=== PATIENT | male | born 1930 | race Caucasian/White ===

== ENCOUNTER 2017-04-10 18:54 | Inpatient (IN) | payer MEDICARE, OTHER ==
[2017-04-10 19:08] LABS: Glucose,Whole Blood 218 mg/dL (75-99)
[2017-04-10] MEDS ORDERED: ACETAMINOPHEN TAB 500 MG TAB PO STA (19:25)
[2017-04-10] MEDS ORDERED: IBUPROFEN 600 MG TAB PO STA (19:25)
--- NOTE | 2017-04-10 19:30 | ED ---
General Adult HPI - General Source: family, RN notes reviewed Mode of arrival: wheelchair Limitations: no limitations <Mosiés Crisostomo - Last Filed: 04/10/17 20:53> <Moisés Casanova - Last Filed: 04/10/17 23:33> - General Chief complaint: Neuro Symptoms/Deficit Stated complaint: poss CVA/Weakness Time Seen by Provider: 04/10/17 19:00 - History of Present Illness Initial comments: This is an 86 rolled male who is brought into the emergency department with the family noticed left-sided weakness. According to the family patient was complaining of being very cold yesterday and all night long. Family stated last night he was having difficult time getting to bed and the had to help him get to bed and with the use of a chair so she did not notice any left-sided weakness at that time she really wasn't looking for. Again today the patient Go to bathroom and fell to the ground and needed assistance getting up. Family noticed for sure at about 3:00 this afternoon that the patient was having some left arm weakness and some left facial droop. At this time has decided to bring the patient to the emergency department. Patient's temperature home according to family was normal. Patient has had a little bit of a cough recently. Patient denies any abdominal pain patient denies nausea vomiting diarrhea. Patient denies any headache. Patient denies any recent injury or trauma. Patient has a past history of atrial fibrillation. (Moisés Crisostomo) - Related Data Home Medications Medication Instructions Recorded Confirmed Apixaban [Eliquis] 2.5 mg PO HS 04/10/17 04/10/17 Aspirin EC [Ecotrin Low Dose] 81 mg PO DAILY 04/10/17 04/10/17 Atorvastatin [Lipitor] 20 mg PO HS 04/10/17 04/10/17 Furosemide [Lasix] 40 mg PO DAILY 04/10/17 04/10/17 Glimepiride [Amaryl] 2 mg PO DAILY 04/10/17 04/10/17 Losartan [Cozaar] 50 mg PO DAILY 04/10/17 04/10/17 Potassium Gluconate 99 mg PO HS 04/10/17 04/10/17 Allergies Allergy/AdvReac Type Severity Reaction Status Date / Time No Known Allergies Allergy Verified 04/10/17 20:27 Review of Systems ROS Other: All systems not noted in ROS Statement are negative. <Moisés Crisostomo - Last Filed: 04/10/17 20:53> ROS Other: All systems not noted in ROS Statement are negative. <Moisés Casanova - Last Filed: 04/10/17 23:33> ROS Statement: Those systems with pertinent positive or pertinent negative responses have been documented in the HPI. Past Medical History Past Medical History: Heart Failure, CVA/TIA, Dialysis, Hypertension, Myocardial Infarction ([place]) History of Any Multi-Drug Resistant Organisms: None Reported Past Surgical History: Hernia Repair Past Psychological History: No Psychological Hx Reported Smoking Status: Never smoker Past Alcohol Use History: Rare Past Drug Use History: None Reported <Moisés Crisostomo - Last Filed: 04/10/17 20:53> General Exam Limitations: no limitations <Moisés Crisostomo - Last Filed: 04/10/17 20:53> General appearance: alert (arousable), lethargic, in distress Head exam: Present: atraumatic, normocephalic, normal inspection Eye exam: Present: normal appearance, PERRL, EOMI. Absent: scleral icterus, conjunctival injection, periorbital swelling ENT exam: Present: normal exam, mucous membranes dry. Absent: mucous membranes moist Neck exam: Present: normal inspection. Absent: tenderness, meningismus, lymphadenopathy Respiratory exam: Present: normal lung sounds bilaterally, rales, accessory muscle use, decreased breath sounds. Absent: respiratory distress, wheezes, rhonchi, stridor Cardiovascular Exam: Present: tachycardia, normal heart sounds. Absent: systolic murmur, diastolic murmur, rubs, gallop, clicks GI/Abdominal exam: Present: soft, tenderness (RUQ), normal bowel sounds. Absent : distended, guarding, rebound, rigid Extremities exam: Present: normal inspection, full ROM, normal capillary refill. Absent: tenderness, pedal edema, joint swelling, calf tenderness Back exam: Present: normal inspection Neurological exam: Present: alert, oriented X3, CN II-XII intact Psychiatric exam: Present: normal affect, normal mood Skin exam: Present: warm, dry, intact, normal color. Absent: rash <Moisés Casanova - Last Filed: 04/10/17 23:33> - General Exam Comments Initial Comments: GENERAL: Patient is well-developed and well-nourished. Patient is nontoxic and well- hydrated and is in mild distress. ENT: Neck is soft and supple. No significant lymphadenopathy is noted. Oropharynx is clear. Moist mucous membranes. Neck has full range of motion without eliciting any pain. EYES: The sclera were anicteric and conjunctiva were pink and moist. Extraocular movements were intact and pupils were equal round and reactive to light. Eyelids were unremarkable. PULMONARY: Unlabored respirations. Good breath sounds bilaterally. No audible rales rhonchi or wheezing was noted. CARDIOVASCULAR: There is a regular rate and rhythm without any murmurs gallops or rubs. ABDOMEN: Soft and nontender with normal bowel sounds. No palpable organomegaly was noted. There is no palpable pulsatile mass. SKIN: Skin is clear with no lesions or rashes and otherwise unremarkable. NEUROLOGIC: Patient is alert and oriented x3. 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 LYMPHATICS: No significant lymphadenopathy is noted PSYCHIATRIC: Normal psychiatric evaluation. (Moisés Crisostomo) Course <Moisés Crisostomo - Last Filed: 04/10/17 20:53> <Moisés Casanova - Last Filed: 04/10/17 23:33> Vital Signs 04/10/17 04/10/17 04/10/17 18:59 19:23 19:32 Temperature 99.0 F 100.8 F H Pulse Rate 107 H Pulse Rate [ 105 H Regional Engineer ] Respiratory 18 Rate Blood Pressure 133/84 O2 Sat by Pulse 93 L Oximetry 04/10/17 04/10/17 04/10/17 20:08 20:53 21:32 Temperature 97.6 F Pulse Rate 91 88 Pulse Rate [ Regional Engineer ] Respiratory 18 18 Rate Blood Pressure 112/64 81/49 75/52 O2 Sat by Pulse 97 97 97 Oximetry 04/10/17 04/10/17 04/10/17 21:50 21:58 22:06 Temperature Pulse Rate 87 87 85 Pulse Rate [ Regional Engineer ] Respiratory 20 Rate Blood Pressure 72/46 73/52 83/52 O2 Sat by Pulse 98 97 95 Oximetry 04/10/17 04/10/17 22:59 23:03 Temperature Pulse Rate 74 77 Pulse Rate [ Regional Engineer ] Respiratory 20 Rate Blood Pressure 78/53 90/59 O2 Sat by Pulse 99 100 Oximetry - Reevaluation(s) Reevaluation #1: 04/10/17 23:30 patient continues to have decrease in blood pressure will insert central line patient to be started on levophed (Moisés Casanova) Reevaluation #2: 04/10/17 23:31 spoke with family regarding patient condition, they understand prognosis, questions answered (Moisés Casanova) Reevaluation #3: 04/10/17 23:[address] Cuenca, ICU Dr Edge, GenSx Dr Stroud, Cardiology Dr Taylor ( Moisés Casanova) Medical Decision Making - Lab Data Result diagrams: 04/10/17 19:25 04/10/17 19:25 <Moisés Crisostomo - Last Filed: 04/10/17 20:53> - Lab Data Result diagrams: 04/10/17 19:25 04/10/17 19:25 - Radiology Data Radiology results: report reviewed (CT brain is negative for acute disease, chest x-ray shows bilateral pulmonary edema possibly underlying pneumonia, ultrasound gallbladder is positive for dilated common bile duct dilated gallbladder wall, cholecystitis), image reviewed <Moisés Casanova - Last Filed: 04/10/17 23:33> - Medical Decision Making EKG shows sinus tachycardia at 102 bpm ND interval is 218 QRS is 142 QT interval 342 QTC is 445. Patient's EKG shows an occasional PAC patient's EKG shows no obvious ST segment elevation. Patient does have Q waves in inferior leads. Dr. Casanova will be taking over the care of this patient at 9 PM (Moisés Crisostomo) 86 male to the ER for evaluation regarding initially right-sided weakness, patient also having fever abdominal pain, patient is septic with septic shock likely multiorgan dysfunction syndrome, acute kidney insufficiency, elevated troponin, CHF secondary to ascending cholangitis, gallbladder pancreatitis, patient has central line getting resuscitation will admit for definitive monitoring, IV antibiotics including Levaquin and Zosyn, spoke with both GI, ICU and cardiology regarding patient (Moisés Casanova) - Lab Data Lab Results 04/10/17 04/10/17 04/10/17 Range/Units 19:07 19:25 19:25 WBC 15.5 H (3.8-10.6) k/uL RBC 3.68 L (4.30-5.90) m/uL Hgb 11.8 L (13.0-17.5) gm/dL Hct 36.8 L (39.0-53.0) % MCV 100.1 H (80.0-100.0) fL MCH 32.1 (25.0-35.0) pg MCHC 32.0 (31.0-37.0) g/dL RDW 15.2 (11.5-15.5) % Plt Count 93 L (150-450) k/uL Neutrophils % 93 % Lymphocytes % 2 % Monocytes % 4 % Eosinophils % 0 % Basophils % 0 % Neutrophils # 14.4 H (1.3-7.7) k/uL Lymphocytes # 0.4 L (1.0-4.8) k/uL Monocytes # 0.6 (0-1.0) k/uL Eosinophils # 0.0 (0-0.7) k/uL Basophils # 0.0 (0-0.2) k/uL Manual Slide Review Performed Polychromasia Present Macrocytosis Slight PT (9.0-12.0) sec INR (<1.2) APTT (22.0-30.0) sec VBG pH (7.31-7.41) VBG pCO2 (37-51) mmHg VBG HCO3 (24-28) mmol/L Sodium (137-145) mmol/L Potassium (3.5-5.1) mmol/L Chloride (98-107) mmol/L Carbon Dioxide (22-30) mmol/L Anion Gap mmol/L BUN (9-20) mg/dL Creatinine (0.66-1.25) mg/dL Est GFR (MDRD) Af Amer (>60 ml/min/1.73 sqM) Est GFR (MDRD) Non-Af (>60 ml/min/1.73 sqM) Glucose (74-99) mg/dL POC Glucose (mg/dL) 218 H (75-99) mg/dL POC Glu Forming Machine Tender ID Jorge Alberto Gonsalesovan Lactic Ac Sepsis Rflx Plasma Lactic Acid Chay (0.7-2.0) mmol/L Calcium (8.4-10.2) mg/dL Phosphorus (2.5-4.5) mg/dL Magnesium (1.6-2.3) mg/dL Total Bilirubin (0.2-1.3) mg/dL AST (17-59) U/L ALT (21-72) U/L Alkaline Phosphatase (38-126) U/L Ammonia (<30) umol/L Total Creatine Kinase 948 H (55-170) U/L CK-MB (CK-2) 2.8 H* (0.0-2.4) ng/mL CK-MB (CK-2) Rel Index 0.3 Troponin I 3.470 H* (0.000-0.034) ng/mL Total Protein (6.3-8.2) g/dL Albumin (3.5-5.0) g/dL Lipase (23-300) U/L Urine Color Urine Appearance (Clear) Urine pH (5.0-8.0) Ur Specific [place] (1.001-1.035) Urine Protein (Negative) Urine Glucose (UA) (Negative) Urine Ketones (Negative) Urine Blood (Negative) Urine Nitrite (Negative) Urine Bilirubin (Negative) Urine Urobilinogen (<2.0) mg/dL Ur Leukocyte Esterase (Negative) Urine RBC (0-5) /hpf Urine WBC (0-5) /hpf Ur Squamous Epith Cells (0-4) /hpf Urine Bacteria (None) /hpf Hyaline Casts (0-2) /lpf Urine Mucus (None) /hpf Urine Yeast (Budding) (None) /hpf Salicylates mg/dL 04/10/17 04/10/17 04/10/17 Range/Units 19:25 19:25 19:25 WBC (3.8-10.6) k/uL RBC (4.30-5.90) m/uL Hgb (13.0-17.5) gm/dL Hct (39.0-53.0) % MCV (80.0-100.0) fL MCH (25.0-35.0) pg MCHC (31.0-37.0) g/dL RDW (11.5-15.5) % Plt Count (150-450) k/uL Neutrophils % % Lymphocytes % % Monocytes % % Eosinophils % % Basophils % % Neutrophils # (1.3-7.7) k/uL Lymphocytes # (1.0-4.8) k/uL Monocytes # (0-1.0) k/uL Eosinophils # (0-0.7) k/uL Basophils # (0-0.2) k/uL Manual Slide Review Polychromasia Macrocytosis PT 22.3 H (9.0-12.0) sec INR 2.3 H (<1.2) APTT 29.3 (22.0-30.0) sec VBG pH (7.31-7.41) VBG pCO2 (37-51) mmHg VBG HCO3 (24-28) mmol/L Sodium 140 (137-145) mmol/L Potassium 3.8 (3.5-5.1) mmol/L Chloride 106 (98-107) mmol/L Carbon Dioxide 18 L (22-30) mmol/L Anion Gap 16 mmol/L BUN 47 H (9-20) mg/dL Creatinine 1.80 H (0.66-1.25) mg/dL Est GFR (MDRD) Af Amer 44 (>60 ml/min/1.73 sqM) Est GFR (MDRD) Non-Af 36 (>60 ml/min/1.73 sqM) Glucose 216 H (74-99) mg/dL POC Glucose (mg/dL) (75-99) mg/dL POC Glu Forming Machine Tender ID Lactic Ac Sepsis Rflx Plasma Lactic Acid Chay 4.8 H* (0.7-2.0) mmol/L Calcium 9.0 (8.4-10.2) mg/dL Phosphorus (2.5-4.5) mg/dL Magnesium (1.6-2.3) mg/dL Total Bilirubin 5.9 H (0.2-1.3) mg/dL AST 155 H (17-59) U/L ALT 186 H (21-72) U/L Alkaline Phosphatase 199 H (38-126) U/L Ammonia (<30) umol/L Total Creatine Kinase (55-170) U/L CK-MB (CK-2) (0.0-2.4) ng/mL CK-MB (CK-2) Rel Index Troponin I (0.000-0.034) ng/mL Total Protein 5.7 L (6.3-8.2) g/dL Albumin 3.0 L (3.5-5.0) g/dL Lipase (23-300) U/L Urine Color Urine Appearance (Clear) Urine pH (5.0-8.0) Ur Specific [place] (1.001-1.035) Urine Protein (Negative) Urine Glucose (UA) (Negative) Urine Ketones (Negative) Urine Blood (Negative) Urine Nitrite (Negative) Urine Bilirubin (Negative) Urine Urobilinogen (<2.0) mg/dL Ur Leukocyte Esterase (Negative) Urine RBC (0-5) /hpf Urine WBC (0-5) /hpf Ur Squamous Epith Cells (0-4) /hpf Urine Bacteria (None) /hpf Hyaline Casts (0-2) /lpf Urine Mucus (None) /hpf Urine Yeast (Budding) (None) /hpf Salicylates mg/dL 04/10/17 04/10/17 04/10/17 Range/Units 19:52 21:12 21:58 WBC (3.8-10.6) k/uL RBC (4.30-5.90) m/uL Hgb (13.0-17.5) gm/dL Hct (39.0-53.0) % MCV (80.0-100.0) fL MCH (25.0-35.0) pg MCHC (31.0-37.0) g/dL RDW (11.5-15.5) % Plt Count (150-450) k/uL Neutrophils % % Lymphocytes % % Monocytes % % Eosinophils % % Basophils % % Neutrophils # (1.3-7.7) k/uL Lymphocytes # (1.0-4.8) k/uL Monocytes # (0-1.0) k/uL Eosinophils # (0-0.7) k/uL Basophils # (0-0.2) k/uL Manual Slide Review Polychromasia Macrocytosis PT (9.0-12.0) sec INR (<1.2) APTT (22.0-30.0) sec VBG pH (7.31-7.41) VBG pCO2 (37-51) mmHg VBG HCO3 (24-28) mmol/L Sodium (137-145) mmol/L Potassium (3.5-5.1) mmol/L Chloride (98-107) mmol/L Carbon Dioxide (22-30) mmol/L Anion Gap mmol/L BUN (9-20) mg/dL Creatinine (0.66-1.25) mg/dL Est GFR (MDRD) Af Amer (>60 ml/min/1.73 sqM) Est GFR (MDRD) Non-Af (>60 ml/min/1.73 sqM) Glucose (74-99) mg/dL POC Glucose (mg/dL) (75-99) mg/dL POC Glu Forming Machine Tender ID Lactic Ac Sepsis Rflx Y Plasma Lactic Acid Chay 2.7 H* (0.7-2.0) mmol/L Calcium (8.4-10.2) mg/dL Phosphorus (2.5-4.5) mg/dL Magnesium (1.6-2.3) mg/dL Total Bilirubin (0.2-1.3) mg/dL AST (17-59) U/L ALT (21-72) U/L Alkaline Phosphatase (38-126) U/L Ammonia 20 (<30) umol/L Total Creatine Kinase (55-170) U/L CK-MB (CK-2) (0.0-2.4) ng/mL CK-MB (CK-2) Rel Index Troponin I (0.000-0.034) ng/mL Total Protein (6.3-8.2) g/dL Albumin (3.5-5.0) g/dL Lipase (23-300) U/L Urine Color Dark Yellow Urine Appearance Cloudy (Clear) Urine pH 5.5 (5.0-8.0) Ur Specific [place] 1.013 (1.001-1.035) Urine Protein 1+ H (Negative) Urine Glucose (UA) Negative (Negative) Urine Ketones Negative (Negative) Urine Blood Moderate H (Negative) Urine Nitrite Negative (Negative) Urine Bilirubin 1+ H (Negative) Urine Urobilinogen <2.0 (<2.0) mg/dL Ur Leukocyte Esterase Negative (Negative) Urine RBC <1 (0-5) /hpf Urine WBC 5 (0-5) /hpf Ur Squamous Epith Cells <1 (0-4) /hpf Urine Bacteria Rare H (None) /hpf Hyaline Casts 10 H (0-2) /lpf Urine Mucus Rare H (None) /hpf Urine Yeast (Budding) Occasional H (None) /hpf Salicylates mg/dL 04/10/17 04/10/17 04/10/17 Range/Units 21:58 21:58 21:58 WBC (3.8-10.6) k/uL RBC (4.30-5.90) m/uL Hgb (13.0-17.5) gm/dL Hct (39.0-53.0) % MCV (80.0-100.0) fL MCH (25.0-35.0) pg MCHC (31.0-37.0) g/dL RDW (11.5-15.5) % Plt Count (150-450) k/uL Neutrophils % % Lymphocytes % % Monocytes % % Eosinophils % % Basophils % % Neutrophils # (1.3-7.7) k/uL Lymphocytes # (1.0-4.8) k/uL Monocytes # (0-1.0) k/uL Eosinophils # (0-0.7) k/uL Basophils # (0-0.2) k/uL Manual Slide Review Polychromasia Macrocytosis PT (9.0-12.0) sec INR (<1.2) APTT (22.0-30.0) sec VBG pH 7.36 (7.31-7.41) VBG pCO2 36 L (37-51) mmHg VBG HCO3 20 L (24-28) mmol/L Sodium (137-145) mmol/L Potassium (3.5-5.1) mmol/L Chloride (98-107) mmol/L Carbon Dioxide (22-30) mmol/L Anion Gap mmol/L BUN (9-20) mg/dL Creatinine (0.66-1.25) mg/dL Est GFR (MDRD) Af Amer (>60 ml/min/1.73 sqM) Est GFR (MDRD) Non-Af (>60 ml/min/1.73 sqM) Glucose (74-99) mg/dL POC Glucose (mg/dL) (75-99) mg/dL POC Glu Forming Machine Tender ID Lactic Ac Sepsis Rflx Plasma Lactic Acid Chay (0.7-2.0) mmol/L Calcium (8.4-10.2) mg/dL Phosphorus 2.9 (2.5-4.5) mg/dL Magnesium 2.0 (1.6-2.3) mg/dL Total Bilirubin (0.2-1.3) mg/dL AST (17-59) U/L ALT (21-72) U/L Alkaline Phosphatase (38-126) U/L Ammonia (<30) umol/L Total Creatine Kinase (55-170) U/L CK-MB (CK-2) (0.0-2.4) ng/mL CK-MB (CK-2) Rel Index Troponin I 3.280 H* (0.000-0.034) ng/mL Total Protein (6.3-8.2) g/dL Albumin (3.5-5.0) g/dL Lipase 3373 H (23-300) U/L Urine Color Urine Appearance (Clear) Urine pH (5.0-8.0) Ur Specific [place] (1.001-1.035) Urine Protein (Negative) Urine Glucose (UA) (Negative) Urine Ketones (Negative) Urine Blood (Negative) Urine Nitrite (Negative) Urine Bilirubin (Negative) Urine Urobilinogen (<2.0) mg/dL Ur Leukocyte Esterase (Negative) Urine RBC (0-5) /hpf Urine WBC (0-5) /hpf Ur Squamous Epith Cells (0-4) /hpf Urine Bacteria (None) /hpf Hyaline Casts (0-2) /lpf Urine Mucus (None) /hpf Urine Yeast (Budding) (None) /hpf Salicylates <1.0 mg/dL Critical Care Time Critical Care Time: Yes Total Critical Care Time: 65 <Moisés Casanova - Last Filed: 04/10/17 23:33> Disposition <Moisés Crisostomo - Last Filed: 04/10/17 20:53> <Moisés Casanova - Last Filed: 04/10/17 23:33> Clinical Impression: Weakness, Ascending cholangitis, Acute gallstone pancreatitis, Cholecystitis, Pneumonia, CHF (congestive heart failure), Sepsis, Shock circulatory Disposition: ADMITTED IP TO THIS [facility] Condition: Critical Referrals: Jesus Milton MD [Primary Care Provider] - 1-2 days
[2017-04-10] MEDS: SODIUM CHLORIDE 0.9% 500 ML IV SCH (19:42)
[2017-04-10 19:49] LABS: Basophils % (A) 0 %; CH 32.4; CHCM 32.6; Eosinophils % (A) 0 %; HCT 36.8 % (39.0-53.0); HDW 2.45; HGB 11.8 gm/dL (13.0-17.5); Luc % (Auto) 1; Lymphocytes # (A) 0.4 k/uL (1.0-4.8); Lymphocytes % (A) 2 %; MCH 32.1 pg (25.0-35.0); MCV 100.1 fL (80.0-100.0); Macrocytosis Slight; Mean Platelet Volume 9.2; Monocytes # (A) 0.6 k/uL (0-1.0); Monocytes % (A) 4 %; Neutrophils # (A) 14.4 k/uL (1.3-7.7); Neutrophils % (A) 93 %; RBC 3.68 m/uL (4.30-5.90); RDW 15.2 % (11.5-15.5); WBC 15.5 k/uL (3.8-10.6); WBC (Perox) 15.18
[2017-04-10 19:51] LABS: Potassium 3.8 mmol/L (3.5-5.1); Total Bilirubin 5.9 mg/dL (0.2-1.3); Total Protein 5.7 g/dL (6.3-8.2)
[2017-04-10] MEDS ORDERED: SODIUM CHLORIDE 0.9% 1,000 ML IV ONE (19:53)
[2017-04-10 20:08] LABS: INR 2.3 (<1.2); Partial Thromboplastin Time 29.3 sec (22.0-30.0); Prothrombin Time 22.3 sec (9.0-12.0)
[2017-04-10 20:15] LABS: Manual Review Performed; Polychromasia Present
[2017-04-10 20:22] LABS: Creatine Kinase MB 2.8 ng/mL (0.0-2.4); Troponin I 3.47 ng/mL (0.000-0.034)
--- NOTE | 2017-04-10 20:31 | CT ---
EXAMINATION TYPE: CT brain wo con DATE OF EXAM: 04/10/2017 COMPARISON: NONE HISTORY: weakness, fever and confusion CT DLP: 1260 mGycm Automated exposure control for dose reduction was used. FINDINGS: There is cerebral cortical atrophy. There is no mass effect nor midline shift. There is no sign of in tracranial hemorrhage. There is a 4 cm hypodense area in the right posterior parietal lobe related to old cortical infarct. The calvarium is intact. 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 NO ACUTE INTRACRANIAL ABNOR MALITY.
--- NOTE | 2017-04-10 20:33 | XR ---
EXAMINATION TYPE: XR chest 2V DATE OF EXAM: 04/10/2017 COMPARISON: NONE HISTORY: Weakness TECHNIQUE: Frontal and lateral views of the chest are obtained. FINDINGS: There is some pulmonary vascular congestion. There is blunting of costophrenic angles and more on the right side. Heart appears enlarged. There is poor inspiration. Thoracic aorta is atheroma tous. IMPRESSION: Mild congestive heart failure with pleural effusions. Right lower lobe pneumonia cannot be excluded.
[2017-04-10] MEDS: RX INFO: IV CONTRAST WAS GIVEN 1 EACH MISC MISCELLANE PRN ×2 (20:58→22:11)
[2017-04-10] MEDS ORDERED: SODIUM CHLORIDE 0.9% 500 ML IV ONE (21:06)
[2017-04-10 21:22] LABS: Appearance,Urine Cloudy (Clear); Bacteria,Urine Rare /hpf; Bilirubin,Urine 1+ (Negative); Glucose,Urine (UA) Negative (Negative); Ketones,Urine Negative (Negative); Leukocyte Esterase,Urine Negative (Negative); Mucus,Urine Rare /hpf; Nitrite,Urine Negative (Negative); PH, Urine 5.5 (5.0-8.0); Particle Count 18077; Protein,Urine 1+ (Negative); RBC,Urine <1 /hpf (0-5); Specific Gravity,Urine 1.013 (1.001-1.035); Squamous Epithelial Cell,Urine <1 /hpf (0-4); UA Billing (MACRO vs. MICRO) MICRO; Urobilinogen,Urine <2.0 mg/dL (<2.0); WBC,Urine 5 /hpf (0-5)
[2017-04-10] MEDS ORDERED: LEVOFLOXACIN 750MG-D5W PMX 750 MG in DEXTROSE/WATER 1 150ML.BAG IVPB STA (21:39)
--- NOTE | 2017-04-10 21:48 | US ---
EXAMINATION TYPE: US gallbladder DATE OF EXAM: 04/10/2017 COMPARISON: NONE CLINICAL HISTORY: Pain. RUQ pain EXAM MEASUREMENTS: Liver Length: 15.4 cm Gallbladder Wall: 0.70 cm CBD: 1.26 cm Right Kidney: 10.1 x 4.3 x 4.3 cm Gallbladder appears hydropic possible sludge wall thickening CBD dilated Pancreas: Obscured by bowel gas Liver: wnl Gallbladder: Hydropic with internal echoes Evidence for sonographic Jacob's sign: No CBD: dilated Right Kidney: No hydronephrosis or masses seen cortical thinning IMPRESSION: Dilated thick-walled gallbladder. Gallbladder measures 4.5 cm in diameter. This is consis tent with acute cholecystitis. Dilated common bile duct that raises the possibility of very common du ct stone with obstruction.
[2017-04-10 22:12] LABS: VBG PH 7.36 (7.31-7.41)
[2017-04-10] MEDS ORDERED: PIPERACILLIN-TAZOBACTAM 3.375 GM in DEXTROSE/WATER 1 50ML.BAG IVPB STA (22:17)
[2017-04-10] MEDS ORDERED: SODIUM CHLORIDE 0.9% 1,000 ML IV STA ×2 (22:18)
[2017-04-10 22:23] LABS: Phosphorus 2.9 mg/dL (2.5-4.5); Salicylate <1.0 mg/dL
[2017-04-10] MEDS: NOREPINEPHRIN 16 MG-0.9%NS PMX 16 MG/250 ML ML IV ONE (22:42)
[2017-04-10] MEDS ORDERED: IPRATROPIUM-ALBUTEROL 3 ML NEB INHALATION PRN (23:10)
[2017-04-10] MEDS ORDERED: NALOXONE 0.4 MG/ML 1 ML VIAL IV PRN (23:10)
[2017-04-11] MEDS: NOREPINEPHRIN 16 MG-0.9%NS PMX 16 MG/250 ML ML IV ONE ×2 (01:00→14:33)
[2017-04-11 01:05] LABS: Glucose,Whole Blood 141 mg/dL (75-99)
[2017-04-11 01:36] LABS: Amorphous Sediment,Urine Rare /hpf; Appearance,Urine Cloudy (Clear); Bilirubin,Urine 1+ (Negative); Glucose,Urine (UA) Negative (Negative); Ketones,Urine Negative (Negative); Leukocyte Esterase,Urine Negative (Negative); Mucus,Urine Rare /hpf; Nitrite,Urine Negative (Negative); PH, Urine 5.5 (5.0-8.0); Particle Count 14531; Protein,Urine 1+ (Negative); RBC,Urine 1 /hpf (0-5); Specific Gravity,Urine 1.015 (1.001-1.035); Squamous Epithelial Cell,Urine <1 /hpf (0-4); UA Billing (MACRO vs. MICRO) MICRO; Urobilinogen,Urine <2.0 mg/dL (<2.0); WBC,Urine 4 /hpf (0-5)
[2017-04-11 05:04] LABS: Basophils % (A) 0 %; CH 32.2; CHCM 31.5; Eosinophils # (A) 0.1 k/uL (0-0.7); Eosinophils % (A) 0 %; HCT 36.8 % (39.0-53.0); HDW 2.51; HGB 11.6 gm/dL (13.0-17.5); Hypochromasia Slight; Luc # (Auto) 0.22; Luc % (Auto) 1; Lymphocytes # (A) 0.6 k/uL (1.0-4.8); Lymphocytes % (A) 3 %; MCH 32.5 pg (25.0-35.0); MCHC 31.6 g/dL (31.0-37.0); MCV 102.8 fL (80.0-100.0); Macrocytosis Slight; Mean Platelet Volume 9.2; Monocytes # (A) 0.6 k/uL (0-1.0); Monocytes % (A) 3 %; Neutrophils # (A) 16.7 k/uL (1.3-7.7); Neutrophils % (A) 92 %; RBC 3.58 m/uL (4.30-5.90); RDW 15.5 % (11.5-15.5); WBC 18.2 k/uL (3.8-10.6); WBC (Perox) 19.69
[2017-04-11 05:16] LABS: INR 2.4 (<1.2); Prothrombin Time 23.1 sec (9.0-12.0)
[2017-04-11 05:19] LABS: Calcium 7.6 mg/dL (8.4-10.2); Phosphorus 3.1 mg/dL (2.5-4.5); Potassium 3.9 mmol/L (3.5-5.1); Total Bilirubin 5.7 mg/dL (0.2-1.3); Total Protein 5.1 g/dL (6.3-8.2)
[2017-04-11] MEDS ORDERED: LEVOFLOXACIN 750MG-D5W PMX 750 MG in DEXTROSE/WATER 1 150ML.BAG IVPB SCH (07:00)
[2017-04-11 07:33] LABS: Glucose,Whole Blood 150 mg/dL (75-99)
--- NOTE | 2017-04-11 08:40 | XR ---
EXAMINATION TYPE: XR chest 1V DATE OF EXAM: 04/11/2017 COMPARISON: Prior chest x-ray 04/10/2017 HISTORY: Shortness of breath TECHNIQUE: Single frontal view of the chest is obtained. FINDINGS: Right jugular central venous catheter shows the distal tip in the right atrium. There is b lunting of the right costophrenic angle, increased right basilar density. No evident pneumothorax. Th ere may be some improvement in the interstitium, aeration. Heart remains enlarged. IMPRESSION: Cardiomegaly. Right basilar effusion. No evident complication status post central venous catheter placement.
[2017-04-11] MEDS ORDERED: SODIUM CHLORIDE 0.9% 1,000 ML IV ONE (08:42)
--- NOTE | 2017-04-11 08:43 | P.CNPUL ---
History of Present Illness Consult date: 04/11/17 Chief complaint: Sepsis History of present illness: It is a 86-year-old male patient who was brought into the emergency department yesterday extremely sick. The patient apparently was getting progressively weak and this has been noted by the family. He tried to get out of bed and he fell and the family thought that there may be some facial droop on the left. There was initially concern of a stroke and for that reason the patient was rushed into the emergency department. In the ED, the patient was found to be quite sick with elevated lactate and abnormal troponins with abnormal liver function tests and amylase and lipase. Noted the patient was also becoming hypotensive. A triple lumen catheter was inserted and the patient was started on fluids and antibiotics. Based on the abnormalities in liver function tests, the patient had an ultrasound of the gallbladder and the ultrasound findings showed dilated and thickened gallbladder wall and the gallbladder measured 4.5 cm. This was consistent with acute cholecystitis. There was also dilated common bile duct that raised the possibility of common bile duct stone obstruction. He did have an obstructive pattern on his liver function tests with an AST of 155 and ALP of 186 and alkaline phosphatase of 199. The bilirubin was 5.9. Lipase was at 3373. Meanwhile the blood cultures from this morning came back positive for gram-negative bacillus and the blood and the patient is currently covered with a combination of Zosyn and Levaquin. Note that the patient is also hypotensive and the patient is currently on levofed at 15 mics. Urine output is average at around 40 mL an hour. The patient is currently o IV fluids and he is receiving normal state rate of 100 mL an hour. White cell count is up to 18.2. The patient has history of chronic atrial fibrillation/flutter and the patient takes Eliquis at home and his INR currently is at 2. 4. This morning, the patient's lipase level is down trending. His LFTs are also improving. His creatinine is also down to 1.4. 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 The patient is very hard of hearing. Very difficult to communicate with the patient. Yet for the most part he is awake. He is following commands. There is no focal neurological deficits. He also denies having any significant abdominal pain. Review of Systems Constitutional: Reports fatigue, Reports weakness Eyes: bilateral decreased vision, denies blurred vision, denies bulging eye Ears: bilateral: decreased hearing, deny: ear discharge, earache Ears, nose, mouth and throat: Denies headache, Denies sore throat Cardiovascular: Reports irregular heart beat, Reports shortness of breath Respiratory: Reports dyspnea Gastrointestinal: Reports abdominal pain, Reports nausea Genitourinary: Reports as per HPI Musculoskeletal: Denies myalgias Musculoskeletal: absent: ankle pain, ankle stiffness, ankle swelling Integumentary: Denies pruritus, Denies rash Neurological: Reports weakness Endocrine: Denies fatigue, Denies weight change Past Medical History Past Medical History: Atrial Fibrillation, Heart Failure, CVA/TIA, Hypertension , Myocardial Infarction ([place]), Pneumonia Additional Past Medical History / Comment(s): 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 Diabetes mellitus, hyperlipidemia Last Myocardial Infarction Date:: unknown History of Any Multi-Drug Resistant Organisms: None Reported Past Surgical History: Hernia Repair Past Anesthesia/Blood Transfusion Reactions: No Reported Reaction Past Psychological History: No Psychological Hx Reported Smoking Status: Never smoker Past Alcohol Use History: Rare Past Drug Use History: None Reported Medications and Allergies Home Medications Medication Instructions Recorded Confirmed Type Apixaban [Eliquis] 2.5 mg PO HS 04/10/17 04/10/17 History Aspirin EC [Ecotrin Low Dose] 81 mg PO DAILY 04/10/17 04/10/17 History Atorvastatin [Lipitor] 20 mg PO HS 04/10/17 04/10/17 History Furosemide [Lasix] 40 mg PO DAILY 04/10/17 04/10/17 History Glimepiride [Amaryl] 2 mg PO DAILY 04/10/17 04/10/17 History Losartan [Cozaar] 50 mg PO DAILY 04/10/17 04/10/17 History Potassium Gluconate 99 mg PO HS 04/10/17 04/10/17 History Allergies Allergy/AdvReac Type Severity Reaction Status Date / Time No Known Allergies Allergy Verified 04/10/17 20:27 Physical Exam Vitals: Vital Signs Temp Pulse Pulse Resp BP BP Pulse Ox 04/11/17 07:00 84 11 L 101/66 98 04/11/17 06:30 84 26 H 96/63 95 04/11/17 06:00 80 20 104/62 99 04/11/17 05:30 77 20 105/71 100 04/11/17 05:00 92 23 98/68 98 04/11/17 04:30 72 24 100/65 99 04/11/17 04:00 98 F 87 81 20 77/61 100 04/11/17 03:30 82 25 H 97 04/11/17 03:00 87 20 83/60 100 04/11/17 02:30 69 25 H 89/60 99 04/11/17 02:00 80 13 83/51 98 04/11/17 01:30 83 23 80/57 99 04/11/17 00:28 77 102/61 98 04/11/17 00:20 97.5 F L 81 14 84/62 98 04/10/17 23:50 75 93/57 97 04/10/17 23:40 71 91/55 97 04/10/17 23:30 77 18 86/51 98 04/10/17 23:19 78 93/55 98 04/10/17 23:03 77 20 90/59 100 04/10/17 22:59 74 78/53 99 04/10/17 22:06 85 20 83/52 95 04/10/17 21:58 87 73/52 97 04/10/17 21:50 87 72/46 98 04/10/17 21:32 88 18 75/52 97 04/10/17 20:57 73/50 97 04/10/17 20:53 97.6 F 91 18 81/49 97 04/10/17 20:08 112/64 97 04/10/17 19:32 105 H 04/10/17 19:23 100.8 F H 04/10/17 18:59 99.0 F 107 H 18 133/84 93 L Intake and Output 04/10/17 04/11/17 04/11/17 22:59 06:59 14:59 Intake Total 4156.266 100 Output Total 253 35 Balance 3903.266 65 Intake: IV 600 100 Sodium Chloride 0.9% 1, 600 100 000 ml @ 100 mls/hr IV . Q10H STA Rx#:[id number] Amount of Fluid Infused ( 3500 ml) Intake, IV Titration 56.266 Amount Norepinephrin 16 mg-0.9% 56.266 Ns Pmx 16 mg In 250 ml @ Titrate IV .Q0M ONE Rx#: [id number] Output: Urine 253 35 Other: Voiding Method Indwelling Catheter Weight 68.039 kg 67.6 kg Gen. appearance the patient is very much hard of hearing and very hard to communicate with the patient. He looks calm and comfortable. He is laying comfortably in bed. Nonacute distress. It is membranes are dry.Head exam was generally normal. There was no scleral icterus or corneal arcus. Mucous membranes were moist. Neck is supple and there is no JVDs no goiter or neck masses. No obvious facial asymmetry. The patient has a right IJ triple-lumen catheter in place. Lung sounds are diminished and there is some limited correct in the right lung base. No wheezes or rhonchi any other abnormalities.Cardiac exam revealed the PMI to be normally situated and sized. The rhythm was irregular and no extrasystoles were noted during several minutes of auscultation. The first and second heart sounds were normal and physiologic splitting of the second heart sound was noted. There were no murmurs, rubs, clicks, or gallops.Abdominal exam revealed normal bowel sounds. The abdomen was soft, non-tender, and without masses, organomegaly, or appreciable enlargement of the abdominal aorta.Examination of the extremities revealed easily palpable radial, femoral and pedal pulses. There was no cyanosis, clubbing or edema. Neurologically there is equal and symmetrical motor function in all 4 extremities. The patient's speech is little bit garbled yet this could be his baseline. No obvious facial asymmetry. Good gag. Examination of the skin revealed no evidence of significant rashes, suspicious appearing nevi or other concerning lesions. Skeletal examination shows no obvious deformities, arthritis or open Results - Laboratory Findings CBC and BMP: 04/11/17 04:50 04/11/17 04:50 PT/INR, D-dimer PT 23.1 sec (9.0-12.0) H 04/11/17 04:50 INR 2.4 (<1.2) H 04/11/17 04:50 Abnormal lab findings: Abnormal Labs 04/10/17 04/10/17 04/10/17 19:07 19:25 19:25 WBC 15.5 H RBC 3.68 L Hgb 11.8 L Hct 36.8 L MCV 100.1 H Plt Count 93 L Neutrophils # 14.4 H Lymphocytes # 0.4 L PT INR VBG pCO2 VBG HCO3 Chloride Carbon Dioxide BUN Creatinine Glucose POC Glucose (mg/dL) 218 H Plasma Lactic Acid Chay Calcium Total Bilirubin AST ALT Alkaline Phosphatase Total Creatine Kinase 948 H CK-MB (CK-2) 2.8 H* Troponin I 3.470 H* Total Protein Albumin Lipase Urine Protein Urine Blood Urine Bilirubin Amorphous Sediment Urine Bacteria Hyaline Casts Urine Mucus Urine Yeast (Budding) 04/10/17 04/10/17 04/10/17 19:25 19:25 19:25 WBC RBC Hgb Hct MCV Plt Count Neutrophils # Lymphocytes # PT 22.3 H INR 2.3 H VBG pCO2 VBG HCO3 Chloride Carbon Dioxide 18 L BUN 47 H Creatinine 1.80 H Glucose 216 H POC Glucose (mg/dL) Plasma Lactic Acid Chay 4.8 H* Calcium Total Bilirubin 5.9 H AST 155 H ALT 186 H Alkaline Phosphatase 199 H Total Creatine Kinase CK-MB (CK-2) Troponin I Total Protein 5.7 L Albumin 3.0 L Lipase Urine Protein Urine Blood Urine Bilirubin Amorphous Sediment Urine Bacteria Hyaline Casts Urine Mucus Urine Yeast (Budding) 04/10/17 04/10/17 04/10/17 21:12 21:58 21:58 WBC RBC Hgb Hct MCV Plt Count Neutrophils # Lymphocytes # PT INR VBG pCO2 VBG HCO3 Chloride Carbon Dioxide BUN Creatinine Glucose POC Glucose (mg/dL) Plasma Lactic Acid Chay 2.7 H* Calcium Total Bilirubin AST ALT Alkaline Phosphatase Total Creatine Kinase CK-MB (CK-2) Troponin I Total Protein Albumin Lipase 3373 H Urine Protein 1+ H Urine Blood Moderate H Urine Bilirubin 1+ H Amorphous Sediment Urine Bacteria Rare H Hyaline Casts 10 H Urine Mucus Rare H Urine Yeast (Budding) Occasional H 04/10/17 04/10/17 04/11/17 21:58 21:58 01:03 WBC RBC Hgb Hct MCV Plt Count Neutrophils # Lymphocytes # PT INR VBG pCO2 36 L VBG HCO3 20 L Chloride Carbon Dioxide BUN Creatinine Glucose POC Glucose (mg/dL) 141 H Plasma Lactic Acid Chay Calcium Total Bilirubin AST ALT Alkaline Phosphatase Total Creatine Kinase CK-MB (CK-2) Troponin I 3.280 H* Total Protein Albumin Lipase Urine Protein Urine Blood Urine Bilirubin Amorphous Sediment Urine Bacteria Hyaline Casts Urine Mucus Urine Yeast (Budding) 04/11/17 04/11/17 04/11/17 01:07 01:15 04:50 WBC 18.2 H RBC 3.58 L Hgb 11.6 L Hct 36.8 L MCV 102.8 H Plt Count 91 L Neutrophils # 16.7 H Lymphocytes # 0.6 L PT INR VBG pCO2 VBG HCO3 Chloride Carbon Dioxide BUN Creatinine Glucose POC Glucose (mg/dL) Plasma Lactic Acid Chay 2.2 H* Calcium Total Bilirubin AST ALT Alkaline Phosphatase Total Creatine Kinase CK-MB (CK-2) Troponin I Total Protein Albumin Lipase Urine Protein 1+ H Urine Blood Moderate H Urine Bilirubin 1+ H Amorphous Sediment Rare H Urine Bacteria Hyaline Casts Urine Mucus Rare H Urine Yeast (Budding) 04/11/17 04/11/17 04/11/17 04:50 04:50 07:31 WBC RBC Hgb Hct MCV Plt Count Neutrophils # Lymphocytes # PT 23.1 H INR 2.4 H VBG pCO2 VBG HCO3 Chloride 113 H Carbon Dioxide 17 L BUN 44 H Creatinine 1.40 H Glucose 162 H POC Glucose (mg/dL) 150 H Plasma Lactic Acid Chay Calcium 7.6 L Total Bilirubin 5.7 H AST 118 H ALT 157 H Alkaline Phosphatase 165 H Total Creatine Kinase CK-MB (CK-2) Troponin I Total Protein 5.1 L Albumin 2.5 L Lipase 2346 H Urine Protein Urine Blood Urine Bilirubin Amorphous Sediment Urine Bacteria Hyaline Casts Urine Mucus Urine Yeast (Budding) - Diagnostic Findings Chest x-ray: image reviewed Assessment and Plan Plan: Assessment 1 acute cholecystitis/gallstones pancreatitis 2 acute gram-negative septicemia secondary to above. The patient is currently hypotensive and in shock/septic shock, on examination IV fluids, pressors and antibiotics. The source of gram-negative septicemia was most likely the gallbladder 3 acute non-STEMI 4 old CVA without evidence of any new onset neurologic deficits. 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 fib flutter. Current rhythm is sinus with first-degree AV block and frequent PACs 6 coagulopathy, likely secondary to oral anticoagulation Eliquis 7 diabetes mellitus 8 hyperlipidemia 9 congestion heart failure 10 right lower lobe consolidation/rule out effusion/rule out pneumonia 11 coronary artery disease 12 kidney injury with a creatinine of 1.8 at baseline and this is improving and creatinine is down to 1.4 13 extreme hard of hearing and very hard to communicate CHITRA Give the patient another liter of normal saline. Increase the baseline fluid maintenance up to 150 mL an hour. Continue Zosyn and Levaquin for now. GI consultation. Surgical consultation. The patient will have diverticular examination on hold. The patient will need an ERCP based on the findings. The patient's common bile duct is quite distended and he has a elevated alkaline phosphatase and bilirubin consistent with biliary obstruction with secondary pancreatitis. Meanwhile, we'll monitor the urine output. Renal function is improving. Lipase is down trending. We will obtain an echocardiogram. I doubt any acute CVA at this point and the neurologic deficits probably chronic. It's reasonable to Doppler of the carotids and obtain a follow-up CAT scan to make sure there is no new onset CVA with the next 24 hours.
--- NOTE | 2017-04-11 09:49 | P.CONS ---
History of Present Illness - Reason for Consult Consult date: 04/11/17 Choledocholithiasis Requesting physician: Kelly Luciano - History of Present Illness 86-year-old male with a history of atrial fibrillation ELIQUIS monitoring, CVA, pneumonia, ID, heart failure and hypertension. Presents with mental status changes left-sided weakness and left facial droop. Consultation requested for possible choledocholithiasis elevated liver enzymes jaundice. Preliminary blood cultures gram-negative bacilli. White count 15.5-18.2. INR 2.4. Platelet 91-93,000. Hemoglobin 11.6. MCV 102. Total bilirubin 5.9. AST 155. ALT 186. Alk phos is 189. Ammonia 20. Troponin 3.4. Lipase 3373 presently 2346. Pressures labile as low as systolics 70s currently on IV pressors. No reports abdominal pain. No bleeding. T-max 100.8. No history of alcoholism or known liver disorders. Ultrasound CBD dilation 1.2 cm with gallbladder wall thickening and dilation, hydropic, possible sludge. No hepatic masses mentioned. CT brain moderate cerebral atrophy. Old right posterior parietal infarct. No acute intracranial abnormality. Review of Systems Obtained by nursing staff medical records patient unable to provide a detailed history Constitutional: Denies fever, chills, sweats, weight gain, or loss. HEENT: Negative for migraines, blurred vision or loss, earaches, drainage, tinnitus, oral mucosal lesions, dysphagia, or odynophagia. Cardiac: Atrial fibrillation. Hypertension. ID. CHF. Negative for chest pain , arrhythmias, or palpitation. Respiratory: Negative for shortness of breath, hemoptysis, cough, or sputum production. Gastrointestinal: See HPI for pertinent findings. Genitourinary: Negative for hematuria, urgency, frequency, polyuria, dysuria, or penile discharge. Musculoskeletal: Negative for muscle aches, swelling, arthritis, and arthralgias. Neurologic: History of CVA. Endocrine: Negative for thyroid problems. Skin: Negative for rash or itching. 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 Diabetes mellitus, hyperlipidemia Last Myocardial Infarction Date:: unknown History of Any Multi-Drug Resistant Organisms: None Reported Past Surgical History: Hernia Repair Past Anesthesia/Blood Transfusion Reactions: No Reported Reaction Past Psychological History: No Psychological Hx Reported Smoking Status: Never smoker Past Alcohol Use History: Rare Past Drug Use History: None Reported Medications and Allergies Home Medications Medication Instructions Recorded Confirmed Type Apixaban [Eliquis] 2.5 mg PO HS 04/10/17 04/10/17 History Aspirin EC [Ecotrin Low Dose] 81 mg PO DAILY 04/10/17 04/10/17 History Atorvastatin [Lipitor] 20 mg PO HS 04/10/17 04/10/17 History Furosemide [Lasix] 40 mg PO DAILY 04/10/17 04/10/17 History Glimepiride [Amaryl] 2 mg PO DAILY 04/10/17 04/10/17 History Losartan [Cozaar] 50 mg PO DAILY 04/10/17 04/10/17 History Potassium Gluconate 99 mg PO HS 04/10/17 04/10/17 History Allergies Allergy/AdvReac Type Severity Reaction Status Date / Time No Known Allergies Allergy Verified 04/10/17 20:27 Physical Exam Vitals: Vital Signs Temp Pulse Pulse Resp BP BP Pulse Ox 04/11/17 07:00 84 11 L 101/66 98 04/11/17 06:30 84 26 H 96/63 95 04/11/17 06:00 80 20 104/62 99 04/11/17 05:30 77 20 105/71 100 04/11/17 05:00 92 23 98/68 98 04/11/17 04:30 72 24 100/65 99 04/11/17 04:00 98 F 87 81 20 77/61 100 04/11/17 03:30 82 25 H 97 04/11/17 03:00 87 20 83/60 100 04/11/17 02:30 69 25 H 89/60 99 04/11/17 02:00 80 13 83/51 98 04/11/17 01:30 83 23 80/57 99 04/11/17 00:28 77 102/61 98 04/11/17 00:20 97.5 F L 81 14 84/62 98 04/10/17 23:50 75 93/57 97 04/10/17 23:40 71 91/55 97 04/10/17 23:30 77 18 86/51 98 04/10/17 23:19 78 93/55 98 04/10/17 23:03 77 20 90/59 100 04/10/17 22:59 74 78/53 99 04/10/17 22:06 85 20 83/52 95 04/10/17 21:58 87 73/52 97 04/10/17 21:50 87 72/46 98 04/10/17 21:32 88 18 75/52 97 04/10/17 20:57 73/50 97 04/10/17 20:53 97.6 F 91 18 81/49 97 04/10/17 20:08 112/64 97 04/10/17 19:32 105 H 04/10/17 19:23 100.8 F H 04/10/17 18:59 99.0 F 107 H 18 133/84 93 L Intake and Output 04/10/17 04/11/17 04/11/17 22:59 06:59 14:59 Intake Total 4156.266 100 Output Total 253 35 Balance 3903.266 65 Intake: IV 600 100 Sodium Chloride 0.9% 1, 600 100 000 ml @ 100 mls/hr IV . Q10H STA Rx#:[id number] Amount of Fluid Infused ( 3500 ml) Intake, IV Titration 56.266 Amount Norepinephrin 16 mg-0.9% 56.266 Ns Pmx 16 mg In 250 ml @ Titrate IV .Q0M ONE Rx#: [id number] Output: Urine 253 35 Other: Voiding Method Indwelling Catheter Weight 68.039 kg 67.6 kg General appearance: The patient is alert, in no acute distress. Jaundice. Hard of hearing. HET: Head is normocephalic and atraumatic. Pupils are equal and reactive. Sclera icterus. Oropharynx is clear without lesions. Neck: Supple without lymphadenopathy. Trachea midline. Heart: S1 S2. Regular. Lungs: Clear slight diminishment in bilateral bases. Abdomen: Soft, nontender, nondistended with bowel sounds. No peritoneal signs. No palpable organomegaly or masses. Extremities: Normal skin color and turgor. No cyanosis, rash, ulceration, clubbing, or edema. Radial and pedal pulses are 2/4 bilaterally. He with clear matthias urine. Neurological: No focal deficits. Strength and sensation are grossly intact. Results CBC & Chem 7: 04/11/17 04:50 04/11/17 04:50 Labs: Abnormal Lab Results - Last 24 Hours (Table) 04/10/17 04/10/17 04/10/17 Range/Units 19:07 19:25 19:25 WBC 15.5 H (3.8-10.6) k/uL RBC 3.68 L (4.30-5.90) m/uL Hgb 11.8 L (13.0-17.5) gm/dL Hct 36.8 L (39.0-53.0) % MCV 100.1 H (80.0-100.0) fL Plt Count 93 L (150-450) k/uL Neutrophils # 14.4 H (1.3-7.7) k/uL Lymphocytes # 0.4 L (1.0-4.8) k/uL PT (9.0-12.0) sec INR (<1.2) VBG pCO2 (37-51) mmHg VBG HCO3 (24-28) mmol/L Chloride (98-107) mmol/L Carbon Dioxide (22-30) mmol/L BUN (9-20) mg/dL Creatinine (0.66-1.25) mg/dL Glucose (74-99) mg/dL POC Glucose (mg/dL) 218 H (75-99) mg/dL Plasma Lactic Acid Chay (0.7-2.0) mmol/L Calcium (8.4-10.2) mg/dL Total Bilirubin (0.2-1.3) mg/dL AST (17-59) U/L ALT (21-72) U/L Alkaline Phosphatase (38-126) U/L Total Creatine Kinase 948 H (55-170) U/L CK-MB (CK-2) 2.8 H* (0.0-2.4) ng/mL Troponin I 3.470 H* (0.000-0.034) ng/mL Total Protein (6.3-8.2) g/dL Albumin (3.5-5.0) g/dL Lipase (23-300) U/L Urine Protein (Negative) Urine Blood (Negative) Urine Bilirubin (Negative) Amorphous Sediment (None) /hpf Urine Bacteria (None) /hpf Hyaline Casts (0-2) /lpf Urine Mucus (None) /hpf Urine Yeast (Budding) (None) /hpf 04/10/17 04/10/17 04/10/17 Range/Units 19:25 19:25 19:25 WBC (3.8-10.6) k/uL RBC (4.30-5.90) m/uL Hgb (13.0-17.5) gm/dL Hct (39.0-53.0) % MCV (80.0-100.0) fL Plt Count (150-450) k/uL Neutrophils # (1.3-7.7) k/uL Lymphocytes # (1.0-4.8) k/uL PT 22.3 H (9.0-12.0) sec INR 2.3 H (<1.2) VBG pCO2 (37-51) mmHg VBG HCO3 (24-28) mmol/L Chloride (98-107) mmol/L Carbon Dioxide 18 L (22-30) mmol/L BUN 47 H (9-20) mg/dL Creatinine 1.80 H (0.66-1.25) mg/dL Glucose 216 H (74-99) mg/dL POC Glucose (mg/dL) (75-99) mg/dL Plasma Lactic Acid Chay 4.8 H* (0.7-2.0) mmol/L Calcium (8.4-10.2) mg/dL Total Bilirubin 5.9 H (0.2-1.3) mg/dL AST 155 H (17-59) U/L ALT 186 H (21-72) U/L Alkaline Phosphatase 199 H (38-126) U/L Total Creatine Kinase (55-170) U/L CK-MB (CK-2) (0.0-2.4) ng/mL Troponin I (0.000-0.034) ng/mL Total Protein 5.7 L (6.3-8.2) g/dL Albumin 3.0 L (3.5-5.0) g/dL Lipase (23-300) U/L Urine Protein (Negative) Urine Blood (Negative) Urine Bilirubin (Negative) Amorphous Sediment (None) /hpf Urine Bacteria (None) /hpf Hyaline Casts (0-2) /lpf Urine Mucus (None) /hpf Urine Yeast (Budding) (None) /hpf 04/10/17 04/10/17 04/10/17 Range/Units 21:12 21:58 21:58 WBC (3.8-10.6) k/uL RBC (4.30-5.90) m/uL Hgb (13.0-17.5) gm/dL Hct (39.0-53.0) % MCV (80.0-100.0) fL Plt Count (150-450) k/uL Neutrophils # (1.3-7.7) k/uL Lymphocytes # (1.0-4.8) k/uL PT (9.0-12.0) sec INR (<1.2) VBG pCO2 (37-51) mmHg VBG HCO3 (24-28) mmol/L Chloride (98-107) mmol/L Carbon Dioxide (22-30) mmol/L BUN (9-20) mg/dL Creatinine (0.66-1.25) mg/dL Glucose (74-99) mg/dL POC Glucose (mg/dL) (75-99) mg/dL Plasma Lactic Acid Chay 2.7 H* (0.7-2.0) mmol/L Calcium (8.4-10.2) mg/dL Total Bilirubin (0.2-1.3) mg/dL AST (17-59) U/L ALT (21-72) U/L Alkaline Phosphatase (38-126) U/L Total Creatine Kinase (55-170) U/L CK-MB (CK-2) (0.0-2.4) ng/mL Troponin I (0.000-0.034) ng/mL Total Protein (6.3-8.2) g/dL Albumin (3.5-5.0) g/dL Lipase 3373 H (23-300) U/L Urine Protein 1+ H (Negative) Urine Blood Moderate H (Negative) Urine Bilirubin 1+ H (Negative) Amorphous Sediment (None) /hpf Urine Bacteria Rare H (None) /hpf Hyaline Casts 10 H (0-2) /lpf Urine Mucus Rare H (None) /hpf Urine Yeast (Budding) Occasional H (None) /hpf 04/10/17 04/10/17 04/11/17 Range/Units 21:58 21:58 01:03 WBC (3.8-10.6) k/uL RBC (4.30-5.90) m/uL Hgb (13.0-17.5) gm/dL Hct (39.0-53.0) % MCV (80.0-100.0) fL Plt Count (150-450) k/uL Neutrophils # (1.3-7.7) k/uL Lymphocytes # (1.0-4.8) k/uL PT (9.0-12.0) sec INR (<1.2) VBG pCO2 36 L (37-51) mmHg VBG HCO3 20 L (24-28) mmol/L Chloride (98-107) mmol/L Carbon Dioxide (22-30) mmol/L BUN (9-20) mg/dL Creatinine (0.66-1.25) mg/dL Glucose (74-99) mg/dL POC Glucose (mg/dL) 141 H (75-99) mg/dL Plasma Lactic Acid Chay (0.7-2.0) mmol/L Calcium (8.4-10.2) mg/dL Total Bilirubin (0.2-1.3) mg/dL AST (17-59) U/L ALT (21-72) U/L Alkaline Phosphatase (38-126) U/L Total Creatine Kinase (55-170) U/L CK-MB (CK-2) (0.0-2.4) ng/mL Troponin I 3.280 H* (0.000-0.034) ng/mL Total Protein (6.3-8.2) g/dL Albumin (3.5-5.0) g/dL Lipase (23-300) U/L Urine Protein (Negative) Urine Blood (Negative) Urine Bilirubin (Negative) Amorphous Sediment (None) /hpf Urine Bacteria (None) /hpf Hyaline Casts (0-2) /lpf Urine Mucus (None) /hpf Urine Yeast (Budding) (None) /hpf 04/11/17 04/11/17 04/11/17 Range/Units 01:07 01:15 04:50 WBC 18.2 H (3.8-10.6) k/uL RBC 3.58 L (4.30-5.90) m/uL Hgb 11.6 L (13.0-17.5) gm/dL Hct 36.8 L (39.0-53.0) % MCV 102.8 H (80.0-100.0) fL Plt Count 91 L (150-450) k/uL Neutrophils # 16.7 H (1.3-7.7) k/uL Lymphocytes # 0.6 L (1.0-4.8) k/uL PT (9.0-12.0) sec INR (<1.2) VBG pCO2 (37-51) mmHg VBG HCO3 (24-28) mmol/L Chloride (98-107) mmol/L Carbon Dioxide (22-30) mmol/L BUN (9-20) mg/dL Creatinine (0.66-1.25) mg/dL Glucose (74-99) mg/dL POC Glucose (mg/dL) (75-99) mg/dL Plasma Lactic Acid Chay 2.2 H* (0.7-2.0) mmol/L Calcium (8.4-10.2) mg/dL Total Bilirubin (0.2-1.3) mg/dL AST (17-59) U/L ALT (21-72) U/L Alkaline Phosphatase (38-126) U/L Total Creatine Kinase (55-170) U/L CK-MB (CK-2) (0.0-2.4) ng/mL Troponin I (0.000-0.034) ng/mL Total Protein (6.3-8.2) g/dL Albumin (3.5-5.0) g/dL Lipase (23-300) U/L Urine Protein 1+ H (Negative) Urine Blood Moderate H (Negative) Urine Bilirubin 1+ H (Negative) Amorphous Sediment Rare H (None) /hpf Urine Bacteria (None) /hpf Hyaline Casts (0-2) /lpf Urine Mucus Rare H (None) /hpf Urine Yeast (Budding) (None) /hpf 04/11/17 04/11/17 04/11/17 Range/Units 04:50 04:50 07:31 WBC (3.8-10.6) k/uL RBC (4.30-5.90) m/uL Hgb (13.0-17.5) gm/dL Hct (39.0-53.0) % MCV (80.0-100.0) fL Plt Count (150-450) k/uL Neutrophils # (1.3-7.7) k/uL Lymphocytes # (1.0-4.8) k/uL PT 23.1 H (9.0-12.0) sec INR 2.4 H (<1.2) VBG pCO2 (37-51) mmHg VBG HCO3 (24-28) mmol/L Chloride 113 H (98-107) mmol/L Carbon Dioxide 17 L (22-30) mmol/L BUN 44 H (9-20) mg/dL Creatinine 1.40 H (0.66-1.25) mg/dL Glucose 162 H (74-99) mg/dL POC Glucose (mg/dL) 150 H (75-99) mg/dL Plasma Lactic Acid Chay (0.7-2.0) mmol/L Calcium 7.6 L (8.4-10.2) mg/dL Total Bilirubin 5.7 H (0.2-1.3) mg/dL AST 118 H (17-59) U/L ALT 157 H (21-72) U/L Alkaline Phosphatase 165 H (38-126) U/L Total Creatine Kinase (55-170) U/L CK-MB (CK-2) (0.0-2.4) ng/mL Troponin I (0.000-0.034) ng/mL Total Protein 5.1 L (6.3-8.2) g/dL Albumin 2.5 L (3.5-5.0) g/dL Lipase 2346 H (23-300) U/L Urine Protein (Negative) Urine Blood (Negative) Urine Bilirubin (Negative) Amorphous Sediment (None) /hpf Urine Bacteria (None) /hpf Hyaline Casts (0-2) /lpf Urine Mucus (None) /hpf Urine Yeast (Budding) (None) /hpf Microbiology - Last 24 Hours (Table) 04/10/17 19:25 Blood Culture Gram Stain - Preliminary Blood 04/10/17 21:12 Urine Culture - Preliminary Urine,Voided US - abdomen: report reviewed (Dr. Haro) Assessment and Plan (1) Sepsis Narrative/Plan: Biliary sepsis suspected gallstone pancreatitis choledocholithiasis dilated common bile duct with gram-negative bacteremia possible ascending cholangitis. Status: Acute (2) Acute gallstone pancreatitis Status: Acute (3) Non-STEMI (non-ST elevated myocardial infarction) Status: Acute (4) Coagulopathy Status: Acute (5) Chronic atrial fibrillation Status: Chronic Plan: 1. Nothing by mouth. General surgical consult. 2. ERCP tentative scheduled tomorrow morning pending improvement of pancreatic enzymes PT/INR. 3. IV antibiotics. ID consult. Supportive measures. GI prophylaxis. 4. Hepatitis screen. Repeat CMP lipase PT/INR this afternoon. The tube repairer has discussed the risks, benefits and alternative therapies for the above-mentioned procedure and for both sedation/analgesia as well as necessary blood product administration, if indicated, as they pertain to this patient. The patient family has indicated understanding and acceptance of the risks and procedures discussed. Thank you for this kind referral and the opportunity to participate in the care of your patient. This consultation was discussed with Dr. Haro. The impression and plan of care have been directed as dictated.
[2017-04-11] MEDS: SODIUM CHLORIDE 0.9% 1,000 ML IV SCH ×2 (09:59→17:30)
[2017-04-11] MEDS: PANTOPRAZOLE 40 MG/10 ML VIAL IV SCH (10:00)
[2017-04-11] MEDS: INSULIN LISPRO (humaLOG) 300 UNIT/3 ML VIAL SQ SCH ×3 (10:00→18:09)
[2017-04-11] MEDS: POTASSIUM CHLORIDE 10 MEQ in WATER FOR INJECTION 1 100ML.BAG IVPB SCH ×2 (10:27→11:29)
[2017-04-11 11:09] LABS: Hemoglobin A1C 6.5 % (4.2-6.1)
[2017-04-11] MEDS: PIPERACILLIN-TAZOBACTAM 3.375 GM in DEXTROSE/WATER 1 50ML.BAG IVPB SCH ×3 (11:29→23:16)
--- NOTE | 2017-04-11 11:38 | CONS ---
CONSULTATION Mr. Fuentes is an 86-year-old gentleman who is seen for cardiac evaluation. This patient's medical record reviewed. Patient was primarily admitted with feeling progressively weak, it was difficult to get the patient out of bed. Patient subsequently came to the emergency room and the further workup showed significantly elevated liver enzymes. Ultrasound of the gallbladder shows dilated gallbladder with a dilated common bile duct with history of acute cholecystitis and possible stone in the common bile duct. Patient has been on a high dose of Levophed. His urine output is borderline and patient has a history of atrial fibrillation and had been on Eliquis. Patient denies any chest pains at present. There is no further detailed past cardiac history available. PAST HISTORY: Past history of CVA with a stroke, history of chronic atrial fibrillation/flutter, hypertension, coronary artery disease, and congestive cardiac failure. HOME MEDICATIONS: Included Lipitor, Amaryl, Cozaar, potassium, apixaban and baby aspirin. PHYSICAL EXAMINATION: At present reveals 86-year-old gentleman who is alert and awake, is not in any acute respiratory distress. Heart rate is 84 per minute, blood pressure is 101/66 mmHg on Levophed drip. HEENT examination is negative. Neck is supple. No significant increase in jugular venous pressure is noted. Both the carotid pulses are felt. There is no bruit. Chest is symmetrical. Heart, the PMI is not felt. First and second heart sounds are normal. No significant murmurs are noted. Lungs reveal bilateral good air entry. Abdomen is mildly distended and some tenderness noted on the right side. Extremities, peripheral pulsations are not felt. EKG shows normal sinus rhythm with PACs and PVCs and an intraventricular conduction delay and possible old inferior wall myocardial infarction is noted. Patient's electrolytes are normal. Initial creatinine was 1.8 and repeat creatinine is 1.4. Patient's initial lactic acid was 4.8, lactic acid now is 1.8. Liver enzymes are elevated. Patient's troponins of 3.2 and 3.4. Echocardiogram reveals dilated left ventricle with diffuse severe degree of global hypokinesia with an ejection fraction of 15%-20%. FINAL IMPRESSION: 1. This patient is admitted with acute cholecystitis and sepsis. Patient has septic shock. 2. Patient has a history of atrial fibrillation but currently patient is in normal sinus rhythm with multiple premature atrial contractions and premature ventricular contractions. Patient has cardiomyopathy with severely impaired left ventricular systolic functions. I do not have any old echo available but this could partly due to the sepsis. 3. Abnormal troponin could be due to the septic shock. Type 2 myocardial infarction. Supply and demand mismatch cannot be entirely excluded. RECOMMENDATIONS: At present, I would recommend to continue the supportive treatment. If patient is considered for any high risk or any kind of intervention, we will discuss this with Dr. Edge, but we may not have any choice but to proceed with an ERCP. MMODL / IJN: [id number] /
--- NOTE | 2017-04-11 12:15 | US ---
EXAMINATION TYPE: US carotid duplex LT DATE OF EXAM: 04/11/2017 COMPARISON: NONE CLINICAL HISTORY: left sided weakness. EXAM MEASUREMENTS: RIGHT: Not done, ICU patient with triple lumen catheter and bandaging on right, unable to scan. LEFT: Peak Systolic Velocity (PSV) cm/sec ----- Left CCA: 51.6 ----- Left ICA: 126.1 ----- Left ECA: 164.6 BULB/CCA ratio: 2.4 LEFT: End Diastole cm/sec ----- Left CCA: 14.0 ----- Left ICA: 85.5 BULB: 126.1 ----- Left ECA: 164.6 VERTEBRALS (direction of flow): Left Vertebral: Antegrade Rhythm: Arrhythmia Somewhat confused ICU patient who had trouble not talking during test. Technically difficult study. S ignificant plaque, elevated velocity in bulb. Exam is limited. 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 Right side is not evaluated.
[2017-04-11 12:29] LABS: Glucose,Whole Blood 160 mg/dL (75-99)
--- NOTE | 2017-04-11 13:13 | ECHOF ---
Referral Reason:CHF MEASUREMENTS -------- HEIGHT: 170.2 cm WEIGHT: 67.6 kg BP: 100/61 IVSd: 1.3 cm (0.6 - 1.1) LVIDd: 5.5 cm (3.9 - 5.3) LVPWd: 1.2 cm (0.6 - 1.1) IVSs: 1.4 cm LVIDs: 5.8 cm LVPWs: 0.8 cm LAESV Index (A-L): 49.64 ml/m Ao Diam: 2.7 cm (2.0 - 3.7) AV Cusp: 0.8 cm (1.5 - 2.6) LA Diam: 5.1 cm (2.7 - 3.8) MV EXCURSION: 11.106 mm (> 18.000) MV EF SLOPE: 50 mm/s (70 - 150) EPSS: 2.4 cm MV E Elfego: 1.06 m/s MV DecT: 162 ms MV A Elfego: 0.40 m/s MV E/A Ratio: 2.67 RAP: 15.00 mmHg RVSP: 78.63 mmHg FINDINGS -------- Sinus rhythm. This was a techncally difficult study with suboptimal views, , Definity utilized for enhancement of images. The left ventricle is moderately dilated. There is severe global hypokinesis of LV . Overall left ventricular systolic function is severely impaired with, an EF < 20%. Both the mean atrial pressure as well as the LV end diastolic pressure is elevated 33.91. The right ventricle is normal in size. LA is severely dilated >40 ml/m2 The right atrial size is normal. 1.5MG OF DEFINITY UTLIZED: 2 OR MORE WALL SEGMENTS NOT VISUALIZED. There is moderate aortic valve sclerosis. Mild mitral regurgitation is present. Mild tricuspid regurgitation present. There is moderate to severe pulmonary hypertension. The right ventricular systolic pressure, as measured by Doppler, is 78.63mmHg. Trace/mild (physiologic) pulmonic regurgitation. The aortic root size is normal. There is no pericardial effusion. CONCLUSIONS -------- 1. This was a techncally difficult study with suboptimal views, , Definity utilized for enhancement of images. 2. There is moderate to severe pulmonary hypertension. 3. The right ventricular systolic pressure, as measured by Doppler, is 78.63mmHg. 4. Trace/mild (physiologic) pulmonic regurgitation. 5. The aortic root size is normal. 6. There is no pericardial effusion. 7. The left ventricle is moderately dilated. 8. There is severe global hypokinesis of LV . 9. Overall left ventricular systolic function is severely impaired with, an EF < 20%. 10. LA is severely dilated >40 ml/m2 11. 1.5MG OF DEFINITY UTLIZED: 2 OR MORE WALL SEGMENTS NOT VISUALIZED. 12. There is moderate aortic valve sclerosis. 13. Mild mitral regurgitation is present. 14. Mild tricuspid regurgitation present. ANIMAL TRAINER: Lissette Young RDCS
[2017-04-11 13:39] LABS: INR 2.4 (<1.2); Prothrombin Time 22.7 sec (9.0-12.0)
--- NOTE | 2017-04-11 13:58 | P.GSCN ---
History of Present Illness Consult date: 04/11/17 Reason for Consult: Gallstone pancreatitis History of present illness: Patient was brought to the hospital with weakness and possible acute CVA. He was found to be septic on admission. Blood cultures are positive for gram- negative bacilli. Lab values are showing elevated liver enzymes and pancreatic enzymes consistent with gallstone pancreatitis. Bilirubin is high as 5.9. Lactic acid is elevated although improved today. He is in the ICU. He is pleasantly confused. His blood pressure is being maintained on 15 mics of Levophed currently. Actually denies pain. Denies nausea or vomiting. He has already been evaluated by GI and there are plans underway for possible ERCP tomorrow. INR is 2.4. Inflammatory changes of the gallbladder are seen along with biliary dilation. No history of similar events that we are aware of. 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 Diabetes mellitus, hyperlipidemia Last Myocardial Infarction Date:: unknown History of Any Multi-Drug Resistant Organisms: None Reported Past Surgical History: Hernia Repair Past Anesthesia/Blood Transfusion Reactions: No Reported Reaction Past Psychological History: No Psychological Hx Reported Smoking Status: Never smoker Past Alcohol Use History: Rare Past Drug Use History: None Reported Medications and Allergies Home Medications Medication Instructions Recorded Confirmed Type Apixaban [Eliquis] 2.5 mg PO HS 04/10/17 04/10/17 History Aspirin EC [Ecotrin Low Dose] 81 mg PO DAILY 04/10/17 04/10/17 History Atorvastatin [Lipitor] 20 mg PO HS 04/10/17 04/10/17 History Furosemide [Lasix] 40 mg PO DAILY 04/10/17 04/10/17 History Glimepiride [Amaryl] 2 mg PO DAILY 04/10/17 04/10/17 History Losartan [Cozaar] 50 mg PO DAILY 04/10/17 04/10/17 History Potassium Gluconate 99 mg PO HS 04/10/17 04/10/17 History Allergies Allergy/AdvReac Type Severity Reaction Status Date / Time No Known Allergies Allergy Verified 04/10/17 20:27 Surgical - Exam Vital Signs Temp Pulse Resp BP Pulse Ox 99.0 F 107 H 18 133/84 93 L 04/10/17 18:59 04/10/17 18:59 04/10/17 18:59 04/10/17 18:59 04/10/17 18:59 Physical exam: General: Well-developed, well-nourished HEENT: Normocephalic, sclerae icteric Abdomen: Mild epigastric tenderness, nondistended Extremities: No edema Neuro: Alert and oriented Results - Labs 04/11/17 04:50 04/11/17 04:50 Abnormal Lab Results - Last 24 Hours (Table) 04/10/17 04/10/17 04/10/17 Range/Units 19:07 19:25 19:25 WBC 15.5 H (3.8-10.6) k/uL RBC 3.68 L (4.30-5.90) m/uL Hgb 11.8 L (13.0-17.5) gm/dL Hct 36.8 L (39.0-53.0) % MCV 100.1 H (80.0-100.0) fL Plt Count 93 L (150-450) k/uL Neutrophils # 14.4 H (1.3-7.7) k/uL Lymphocytes # 0.4 L (1.0-4.8) k/uL PT (9.0-12.0) sec INR (<1.2) VBG pCO2 (37-51) mmHg VBG HCO3 (24-28) mmol/L Chloride (98-107) mmol/L Carbon Dioxide (22-30) mmol/L BUN (9-20) mg/dL Creatinine (0.66-1.25) mg/dL Glucose (74-99) mg/dL POC Glucose (mg/dL) 218 H (75-99) mg/dL Hemoglobin A1c (4.2-6.1) % Plasma Lactic Acid Chay (0.7-2.0) mmol/L Calcium (8.4-10.2) mg/dL Total Bilirubin (0.2-1.3) mg/dL AST (17-59) U/L ALT (21-72) U/L Alkaline Phosphatase (38-126) U/L Total Creatine Kinase 948 H (55-170) U/L CK-MB (CK-2) 2.8 H* (0.0-2.4) ng/mL Troponin I 3.470 H* (0.000-0.034) ng/mL Total Protein (6.3-8.2) g/dL Albumin (3.5-5.0) g/dL Lipase (23-300) U/L Urine Protein (Negative) Urine Blood (Negative) Urine Bilirubin (Negative) Amorphous Sediment (None) /hpf Urine Bacteria (None) /hpf Hyaline Casts (0-2) /lpf Urine Mucus (None) /hpf Urine Yeast (Budding) (None) /hpf 04/10/17 04/10/17 04/10/17 Range/Units 19:25 19:25 19:25 WBC (3.8-10.6) k/uL RBC (4.30-5.90) m/uL Hgb (13.0-17.5) gm/dL Hct (39.0-53.0) % MCV (80.0-100.0) fL Plt Count (150-450) k/uL Neutrophils # (1.3-7.7) k/uL Lymphocytes # (1.0-4.8) k/uL PT 22.3 H (9.0-12.0) sec INR 2.3 H (<1.2) VBG pCO2 (37-51) mmHg VBG HCO3 (24-28) mmol/L Chloride (98-107) mmol/L Carbon Dioxide 18 L (22-30) mmol/L BUN 47 H (9-20) mg/dL Creatinine 1.80 H (0.66-1.25) mg/dL Glucose 216 H (74-99) mg/dL POC Glucose (mg/dL) (75-99) mg/dL Hemoglobin A1c (4.2-6.1) % Plasma Lactic Acid Chay 4.8 H* (0.7-2.0) mmol/L Calcium (8.4-10.2) mg/dL Total Bilirubin 5.9 H (0.2-1.3) mg/dL AST 155 H (17-59) U/L ALT 186 H (21-72) U/L Alkaline Phosphatase 199 H (38-126) U/L Total Creatine Kinase (55-170) U/L CK-MB (CK-2) (0.0-2.4) ng/mL Troponin I (0.000-0.034) ng/mL Total Protein 5.7 L (6.3-8.2) g/dL Albumin 3.0 L (3.5-5.0) g/dL Lipase (23-300) U/L Urine Protein (Negative) Urine Blood (Negative) Urine Bilirubin (Negative) Amorphous Sediment (None) /hpf Urine Bacteria (None) /hpf Hyaline Casts (0-2) /lpf Urine Mucus (None) /hpf Urine Yeast (Budding) (None) /hpf 04/10/17 04/10/17 04/10/17 Range/Units 21:12 21:58 21:58 WBC (3.8-10.6) k/uL RBC (4.30-5.90) m/uL Hgb (13.0-17.5) gm/dL Hct (39.0-53.0) % MCV (80.0-100.0) fL Plt Count (150-450) k/uL Neutrophils # (1.3-7.7) k/uL Lymphocytes # (1.0-4.8) k/uL PT (9.0-12.0) sec INR (<1.2) VBG pCO2 (37-51) mmHg VBG HCO3 (24-28) mmol/L Chloride (98-107) mmol/L Carbon Dioxide (22-30) mmol/L BUN (9-20) mg/dL Creatinine (0.66-1.25) mg/dL Glucose (74-99) mg/dL POC Glucose (mg/dL) (75-99) mg/dL Hemoglobin A1c (4.2-6.1) % Plasma Lactic Acid Chay 2.7 H* (0.7-2.0) mmol/L Calcium (8.4-10.2) mg/dL Total Bilirubin (0.2-1.3) mg/dL AST (17-59) U/L ALT (21-72) U/L Alkaline Phosphatase (38-126) U/L Total Creatine Kinase (55-170) U/L CK-MB (CK-2) (0.0-2.4) ng/mL Troponin I (0.000-0.034) ng/mL Total Protein (6.3-8.2) g/dL Albumin (3.5-5.0) g/dL Lipase 3373 H (23-300) U/L Urine Protein 1+ H (Negative) Urine Blood Moderate H (Negative) Urine Bilirubin 1+ H (Negative) Amorphous Sediment (None) /hpf Urine Bacteria Rare H (None) /hpf Hyaline Casts 10 H (0-2) /lpf Urine Mucus Rare H (None) /hpf Urine Yeast (Budding) Occasional H (None) /hpf 04/10/17 04/10/17 04/11/17 Range/Units 21:58 21:58 01:03 WBC (3.8-10.6) k/uL RBC (4.30-5.90) m/uL Hgb (13.0-17.5) gm/dL Hct (39.0-53.0) % MCV (80.0-100.0) fL Plt Count (150-450) k/uL Neutrophils # (1.3-7.7) k/uL Lymphocytes # (1.0-4.8) k/uL PT (9.0-12.0) sec INR (<1.2) VBG pCO2 36 L (37-51) mmHg VBG HCO3 20 L (24-28) mmol/L Chloride (98-107) mmol/L Carbon Dioxide (22-30) mmol/L BUN (9-20) mg/dL Creatinine (0.66-1.25) mg/dL Glucose (74-99) mg/dL POC Glucose (mg/dL) 141 H (75-99) mg/dL Hemoglobin A1c (4.2-6.1) % Plasma Lactic Acid Chay (0.7-2.0) mmol/L Calcium (8.4-10.2) mg/dL Total Bilirubin (0.2-1.3) mg/dL AST (17-59) U/L ALT (21-72) U/L Alkaline Phosphatase (38-126) U/L Total Creatine Kinase (55-170) U/L CK-MB (CK-2) (0.0-2.4) ng/mL Troponin I 3.280 H* (0.000-0.034) ng/mL Total Protein (6.3-8.2) g/dL Albumin (3.5-5.0) g/dL Lipase (23-300) U/L Urine Protein (Negative) Urine Blood (Negative) Urine Bilirubin (Negative) Amorphous Sediment (None) /hpf Urine Bacteria (None) /hpf Hyaline Casts (0-2) /lpf Urine Mucus (None) /hpf Urine Yeast (Budding) (None) /hpf 04/11/17 04/11/17 04/11/17 Range/Units 01:07 01:15 04:50 WBC 18.2 H (3.8-10.6) k/uL RBC 3.58 L (4.30-5.90) m/uL Hgb 11.6 L (13.0-17.5) gm/dL Hct 36.8 L (39.0-53.0) % MCV 102.8 H (80.0-100.0) fL Plt Count 91 L (150-450) k/uL Neutrophils # 16.7 H (1.3-7.7) k/uL Lymphocytes # 0.6 L (1.0-4.8) k/uL PT (9.0-12.0) sec INR (<1.2) VBG pCO2 (37-51) mmHg VBG HCO3 (24-28) mmol/L Chloride (98-107) mmol/L Carbon Dioxide (22-30) mmol/L BUN (9-20) mg/dL Creatinine (0.66-1.25) mg/dL Glucose (74-99) mg/dL POC Glucose (mg/dL) (75-99) mg/dL Hemoglobin A1c (4.2-6.1) % Plasma Lactic Acid Chay 2.2 H* (0.7-2.0) mmol/L Calcium (8.4-10.2) mg/dL Total Bilirubin (0.2-1.3) mg/dL AST (17-59) U/L ALT (21-72) U/L Alkaline Phosphatase (38-126) U/L Total Creatine Kinase (55-170) U/L CK-MB (CK-2) (0.0-2.4) ng/mL Troponin I (0.000-0.034) ng/mL Total Protein (6.3-8.2) g/dL Albumin (3.5-5.0) g/dL Lipase (23-300) U/L Urine Protein 1+ H (Negative) Urine Blood Moderate H (Negative) Urine Bilirubin 1+ H (Negative) Amorphous Sediment Rare H (None) /hpf Urine Bacteria (None) /hpf Hyaline Casts (0-2) /lpf Urine Mucus Rare H (None) /hpf Urine Yeast (Budding) (None) /hpf 04/11/17 04/11/17 04/11/17 Range/Units 04:50 04:50 04:50 WBC (3.8-10.6) k/uL RBC (4.30-5.90) m/uL Hgb (13.0-17.5) gm/dL Hct (39.0-53.0) % MCV (80.0-100.0) fL Plt Count (150-450) k/uL Neutrophils # (1.3-7.7) k/uL Lymphocytes # (1.0-4.8) k/uL PT 23.1 H (9.0-12.0) sec INR 2.4 H (<1.2) VBG pCO2 (37-51) mmHg VBG HCO3 (24-28) mmol/L Chloride 113 H (98-107) mmol/L Carbon Dioxide 17 L (22-30) mmol/L BUN 44 H (9-20) mg/dL Creatinine 1.40 H (0.66-1.25) mg/dL Glucose 162 H (74-99) mg/dL POC Glucose (mg/dL) (75-99) mg/dL Hemoglobin A1c 6.5 H (4.2-6.1) % Plasma Lactic Acid Chay (0.7-2.0) mmol/L Calcium 7.6 L (8.4-10.2) mg/dL Total Bilirubin 5.7 H (0.2-1.3) mg/dL AST 118 H (17-59) U/L ALT 157 H (21-72) U/L Alkaline Phosphatase 165 H (38-126) U/L Total Creatine Kinase (55-170) U/L CK-MB (CK-2) (0.0-2.4) ng/mL Troponin I (0.000-0.034) ng/mL Total Protein 5.1 L (6.3-8.2) g/dL Albumin 2.5 L (3.5-5.0) g/dL Lipase 2346 H (23-300) U/L Urine Protein (Negative) Urine Blood (Negative) Urine Bilirubin (Negative) Amorphous Sediment (None) /hpf Urine Bacteria (None) /hpf Hyaline Casts (0-2) /lpf Urine Mucus (None) /hpf Urine Yeast (Budding) (None) /hpf 04/11/17 04/11/17 04/11/17 Range/Units 07:31 12:21 13:00 WBC (3.8-10.6) k/uL RBC (4.30-5.90) m/uL Hgb (13.0-17.5) gm/dL Hct (39.0-53.0) % MCV (80.0-100.0) fL Plt Count (150-450) k/uL Neutrophils # (1.3-7.7) k/uL Lymphocytes # (1.0-4.8) k/uL PT 22.7 H (9.0-12.0) sec INR 2.4 H (<1.2) VBG pCO2 (37-51) mmHg VBG HCO3 (24-28) mmol/L Chloride (98-107) mmol/L Carbon Dioxide (22-30) mmol/L BUN (9-20) mg/dL Creatinine (0.66-1.25) mg/dL Glucose (74-99) mg/dL POC Glucose (mg/dL) 150 H 160 H (75-99) mg/dL Hemoglobin A1c (4.2-6.1) % Plasma Lactic Acid Chay (0.7-2.0) mmol/L Calcium (8.4-10.2) mg/dL Total Bilirubin (0.2-1.3) mg/dL AST (17-59) U/L ALT (21-72) U/L Alkaline Phosphatase (38-126) U/L Total Creatine Kinase (55-170) U/L CK-MB (CK-2) (0.0-2.4) ng/mL Troponin I (0.000-0.034) ng/mL Total Protein (6.3-8.2) g/dL Albumin (3.5-5.0) g/dL Lipase (23-300) U/L Urine Protein (Negative) Urine Blood (Negative) Urine Bilirubin (Negative) Amorphous Sediment (None) /hpf Urine Bacteria (None) /hpf Hyaline Casts (0-2) /lpf Urine Mucus (None) /hpf Urine Yeast (Budding) (None) /hpf 04/11/17 Range/Units 13:00 WBC (3.8-10.6) k/uL RBC (4.30-5.90) m/uL Hgb (13.0-17.5) gm/dL Hct (39.0-53.0) % MCV (80.0-100.0) fL Plt Count (150-450) k/uL Neutrophils # (1.3-7.7) k/uL Lymphocytes # (1.0-4.8) k/uL PT (9.0-12.0) sec INR (<1.2) VBG pCO2 (37-51) mmHg VBG HCO3 (24-28) mmol/L Chloride (98-107) mmol/L Carbon Dioxide (22-30) mmol/L BUN (9-20) mg/dL Creatinine (0.66-1.25) mg/dL Glucose (74-99) mg/dL POC Glucose (mg/dL) (75-99) mg/dL Hemoglobin A1c (4.2-6.1) % Plasma Lactic Acid Chay (0.7-2.0) mmol/L Calcium (8.4-10.2) mg/dL Total Bilirubin (0.2-1.3) mg/dL AST (17-59) U/L ALT (21-72) U/L Alkaline Phosphatase (38-126) U/L Total Creatine Kinase (55-170) U/L CK-MB (CK-2) (0.0-2.4) ng/mL Troponin I (0.000-0.034) ng/mL Total Protein (6.3-8.2) g/dL Albumin (3.5-5.0) g/dL Lipase 1606 H (23-300) U/L Urine Protein (Negative) Urine Blood (Negative) Urine Bilirubin (Negative) Amorphous Sediment (None) /hpf Urine Bacteria (None) /hpf Hyaline Casts (0-2) /lpf Urine Mucus (None) /hpf Urine Yeast (Budding) (None) /hpf Microbiology - Last 24 Hours (Table) 04/10/17 19:25 Blood Culture Gram Stain - Preliminary Blood 04/11/17 01:15 Urine Culture - Preliminary Urine,Catheterized 04/10/17 21:12 Urine Culture - Preliminary Urine,Voided Diabetes panel 04/10/17 04/11/17 04/11/17 Range/Units 19:25 04:50 04:50 Sodium 140 141 (137-145) mmol/L Potassium 3.8 3.9 (3.5-5.1) mmol/L Chloride 106 113 H (98-107) mmol/L Carbon Dioxide 18 L 17 L (22-30) mmol/L BUN 47 H 44 H (9-20) mg/dL Creatinine 1.80 H 1.40 H (0.66-1.25) mg/dL Glucose 216 H 162 H (74-99) mg/dL Hemoglobin A1c 6.5 H (4.2-6.1) % Calcium 9.0 7.6 L (8.4-10.2) mg/dL AST 155 H 118 H (17-59) U/L ALT 186 H 157 H (21-72) U/L Alkaline Phosphatase 199 H 165 H (38-126) U/L Total Protein 5.7 L 5.1 L (6.3-8.2) g/dL Albumin 3.0 L 2.5 L (3.5-5.0) g/dL Calcium panel 04/10/17 04/10/17 04/11/17 Range/Units 19:25 21:58 04:50 Calcium 9.0 7.6 L (8.4-10.2) mg/dL Phosphorus 2.9 3.1 (2.5-4.5) mg/dL Albumin 3.0 L 2.5 L (3.5-5.0) g/dL Pituitary panel 04/10/17 04/11/17 Range/Units 19:25 04:50 Sodium 140 141 (137-145) mmol/L Potassium 3.8 3.9 (3.5-5.1) mmol/L Chloride 106 113 H (98-107) mmol/L Carbon Dioxide 18 L 17 L (22-30) mmol/L BUN 47 H 44 H (9-20) mg/dL Creatinine 1.80 H 1.40 H (0.66-1.25) mg/dL Glucose 216 H 162 H (74-99) mg/dL Calcium 9.0 7.6 L (8.4-10.2) mg/dL Adrenal panel 04/10/17 04/11/17 Range/Units 19:25 04:50 Sodium 140 141 (137-145) mmol/L Potassium 3.8 3.9 (3.5-5.1) mmol/L Chloride 106 113 H (98-107) mmol/L Carbon Dioxide 18 L 17 L (22-30) mmol/L BUN 47 H 44 H (9-20) mg/dL Creatinine 1.80 H 1.40 H (0.66-1.25) mg/dL Glucose 216 H 162 H (74-99) mg/dL Calcium 9.0 7.6 L (8.4-10.2) mg/dL Total Bilirubin 5.9 H 5.7 H (0.2-1.3) mg/dL AST 155 H 118 H (17-59) U/L ALT 186 H 157 H (21-72) U/L Alkaline Phosphatase 199 H 165 H (38-126) U/L Total Protein 5.7 L 5.1 L (6.3-8.2) g/dL Albumin 3.0 L 2.5 L (3.5-5.0) g/dL Assessment and Plan (1) Gallstone pancreatitis Narrative/Plan: Clinical scenario discussed with the patient. Await ERCP findings. Tentatively proceed with cholecystectomy once patient stable. Continue broad- spectrum antibiotics. Status: Acute
[2017-04-11 14:40] LABS: Calcium 7.6 mg/dL (8.4-10.2); Potassium 4.8 mmol/L (3.5-5.1); Total Bilirubin 4.9 mg/dL (0.2-1.3); Total Protein 5.2 g/dL (6.3-8.2)
[2017-04-11] MEDS: NOREPINEPHRIN 16 MG-0.9%NS PMX 16 MG/250 ML ML IV SCH (14:57)
--- NOTE | 2017-04-11 15:14 | HP ---
HISTORY AND PHYSICAL DATE OF SERVICE: 04/11/2017 CHIEF COMPLAINTS: Weakness. HISTORY OF PRESENT ILLNESS: This 86-year-old gentleman with a past medical history of multiple medical problems, atrial ablation, CHF, CVA/TIA, hypertension, myocardial infarction being followed by Dr. Milton in the outpatient setting, is complaining of increasing weakness. Patient apparently fell, also and patient subsequently had some facial droop and left arm weakness and patient is taken to [facility] with concerns of stroke but; however, the patient had features of sepsis and patient admitted for further evaluation and treatment. The other abnormal findings also showed thickened gallbladder and a gallbladder ultrasound was done, showed possible acute cholecystitis. Currently, patient is slightly confused, unable to give a coherent history at this time. Cardiology and Surgery has also seen the patient. Dr. Stroud evaluated the patient and the patient is planning to have ERCP tomorrow per Gastroenterology. The LFTs are elevated. The lipase is also elevated . There is no history of fever or rigors. No history of headache or loss of consciousness. PAST MEDICAL HISTORY: History of atrial fibrillation, CHF, CVA/TIA, hypertension, myocardial infarction, pneumonia. MEDICATIONS: 1. Medication prior to admission, potassium gluconate 99 mg q.h.s. 2. Cozaar 50 mg p.o. daily. 3. Amaryl 2 mg b.i.d. 4. Lasix 40 mg daily. 5. Lipitor 20 mg q.h.s. 6. Ecotrin 81 mg daily. 7. Eliquis 2.5 mg daily. ALLERGIES: None. Family history, social history and review of systems could not be taken. The patient is confused. PHYSICAL EXAMINATION: On exam, alert oriented x1, pulse 86, blood pressure 91/67, respiration 20, temperature 97.4, pulse ox 93% on 2 L. HEENT: Conjunctivae normal. Oral mucosa dry. Neck is homogeneous, no lymph node enlargement. CARDIOVASCULAR SYSTEM: S1, S2, no S3. RESPIRATORY: Breath sounds diminished in the bases. A few scattered rhonchi. No crackles. ABDOMEN: Soft, nontender. No mass palpable. LEGS: No edema, no swelling. NERVOUS SYSTEM: Higher functions as mentioned, moves all 4 limbs, mild diffuse weakness. LYMPHATICS: No lymph node enlargement in neck or axillae. SKIN: No ulcer, rash or bleeding. LABS: WBC 18.8, hemoglobin is 11.6, INR is 2.4, creatinine is 1.4, total bilirubin is 5.7. ASSESSMENT: 1. Acute sepsis, possibly secondary to cholecystitis and cystitis. 2. Hyperbilirubinemia. 3. Increased AST, ALT. 4. Increased lipase, possible acute pancreatitis. 5. Increased creatinine. 6. Atrial fibrillation. 7. History of hypertension. 8. History of myocardial infarction which is cerebrovascular accident. RECOMMENDATION: In this 86-year-old gentleman who presented with multiple complex medical issues, will monitor the patient closely. Continue the current management and will initiate broad- spectrum IV antibiotics. Otherwise. consult Dr. Edge and Dr. Stroud, pressor support. Continue with monitoring. Broad-spectrum IV antibiotics, DVT prophylaxis. The patient also had coagulopathy at this time. I would recommend hold the Eliquis and ERCP has been planned by Gastroenterology. As mentioned earlier, prognosis guarded because of multiple complex medical issues. I will repeat amylase and lipase as well, hepatitis panel has been requested. Daily chest X also to be done to rule out the fluid-elected balance. Once again, the prognosis guarded. Further recommendations to follow. MMODL / IJN: [id number] /
[2017-04-11 17:58] LABS: Glucose,Whole Blood 130 mg/dL (75-99)
[2017-04-11 23:13] LABS: Glucose,Whole Blood 120 mg/dL (75-99)
[2017-04-12 05:02] LABS: CH 30.5; CHCM 30.5; HCT 37.2 % (39.0-53.0); HDW 2.65; HGB 11.6 gm/dL (13.0-17.5); Hypochromasia Moderate; MCH 31.3 pg (25.0-35.0); MCHC 31.1 g/dL (31.0-37.0); MCV 100.5 fL (80.0-100.0); Macrocytosis Slight; Mean Platelet Volume 8.9; RDW 14.5 % (11.5-15.5); WBC 11.7 k/uL (3.8-10.6)
[2017-04-12 05:20] LABS: Calcium 7.8 mg/dL (8.4-10.2); Magnesium 2.1 mg/dL (1.6-2.3); Phosphorus 3.2 mg/dL (2.5-4.5); Potassium 4.2 mmol/L (3.5-5.1)
[2017-04-12] MEDS: SODIUM CHLORIDE 0.9% 1,000 ML IV SCH ×4 (06:52→18:13)
[2017-04-12 06:59] LABS: Glucose,Whole Blood 84 mg/dL (75-99)
--- NOTE | 2017-04-12 07:03 | XR ---
EXAMINATION TYPE: XR chest 1V DATE OF EXAM: 04/12/2017 HISTORY: shortness of breath. REFERENCE: Previous study dated 04/11/2017. FINDINGS: The patient's right internal jugular catheter remains in place, unchanged in appearance. The heart is enlarged. There is right basilar infiltrate. There is a right-sided effusion. The overal l appearance has not changed significantly. IMPRESSION: 1. CARDIOMEGALY. 2. RIGHT BASILAR INFILTRATE WITH ACCOMPANYING EFFUSION.
[2017-04-12] MEDS: INSULIN LISPRO (humaLOG) 300 UNIT/3 ML VIAL SQ SCH ×4 (07:30→18:12)
[2017-04-12] MEDS: PIPERACILLIN-TAZOBACTAM 3.375 GM in DEXTROSE/WATER 1 50ML.BAG IVPB SCH ×2 (07:39→15:59)
[2017-04-12] MEDS: PANTOPRAZOLE 40 MG/10 ML VIAL IV SCH (07:39)
[2017-04-12 07:41] LABS: INR 2.4 (<1.2); Prothrombin Time 23.5 sec (9.0-12.0)
[2017-04-12] MEDS: NOREPINEPHRIN 16 MG-0.9%NS PMX 16 MG/250 ML ML IV SCH (07:46)
--- NOTE | 2017-04-12 07:51 | P.PN ---
Subjective Progress Note Date: 04/12/17 It is a 86-year-old male patient who was brought into the emergency department yesterday extremely sick. The patient apparently was getting progressively weak and this has been noted by the family. He tried to get out of bed and he fell and the family thought that there may be some facial droop on the left. There was initially concern of a stroke and for that reason the patient was rushed into the emergency department. In the ED, the patient was found to be quite sick with elevated lactate and abnormal troponins with abnormal liver function tests and amylase and lipase. Noted the patient was also becoming hypotensive. A triple lumen catheter was inserted and the patient was started on fluids and antibiotics. Based on the abnormalities in liver function tests, the patient had an ultrasound of the gallbladder and the ultrasound findings showed dilated and thickened gallbladder wall and the gallbladder measured 4.5 cm. This was consistent with acute cholecystitis. There was also dilated common bile duct that raised the possibility of common bile duct stone obstruction. He did have an obstructive pattern on his liver function tests with an AST of 155 and ALP of 186 and alkaline phosphatase of 199. The bilirubin was 5.9. Lipase was at 3373. Meanwhile the blood cultures from this morning came back positive for gram-negative bacillus and the blood and the patient is currently covered with a combination of Zosyn and Levaquin. Note that the patient is also hypotensive and the patient is currently on levofed at 15 mics. Urine output is average at around 40 mL an hour. The patient is currently o IV fluids and he is receiving normal state rate of 100 mL an hour. White cell count is up to 18.2. The patient has history of chronic atrial fibrillation/flutter and the patient takes Eliquis at home and his INR currently is at 2. 4. This morning, the patient's lipase level is down trending. His LFTs are also improving. His creatinine is also down to 1.4. 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 The patient is very hard of hearing. Very difficult to communicate with the patient. Yet for the most part he is awake. He is following commands. There is no focal neurological deficits. He also denies having any significant abdominal pain. On 04/02/2017 the patient is being seen for a follow-up. He is doing well. Is awake alert and following commands and answering questions appropriately. No confusion or change in mental status. No significant abdominal pain. As mentioned, the patient has a biliary sepsis with gram-negative bacilli and the blood and the patient is on a combination of Zosyn and Levaquin. Hemodynamically, the patient is on a normal saline infusion running at 150 mL an hour and patient is also on norepinephrine infusion running at 20 mics. The lipase level has been dropping consistently is down to 1500. Meanwhile follow- up liver function tests are still pending. Correlation profile is also pending from this morning and this will be needed as the patient may possibly go for an ERCP today. That coagulation is on hold. He is producing decent urine output. His hemoglobin is 11.7. His creatinine is at 1.5. Echocardiogram was done yesterday and showed a very poor ejection fraction of around 20%. The patient also has a right ventricular systolic pressure of around 78 mmHg probably related to her left-sided failure. Left and it is moderately dilated. Mild MR. Objective - Vital Signs Vital signs: Vital Signs Temp 97.6 F 04/12/17 04:00 Pulse 102 H 04/12/17 07:00 Resp 20 04/12/17 07:00 BP 106/64 04/12/17 07:00 Pulse Ox 99 04/12/17 07:00 Intake & Output 04/11/17 04/12/17 04/12/17 18:59 06:59 18:59 Intake Total 2387.583 1850.0 150 Output Total 233 328 25 Balance 2154.583 1522.0 125 Weight 73.6 kg Intake: IV 2200 1850.0 150 Levofloxacin 750Mg-D5w 150 Pmx 750 mg In Dextrose/ Water 1 150ml.bag @ 100 mls/hr IVPB ONCE [facility] Rx#: [id number] Piperacillin-Tazobactam 3 100 50.0 .375 gm In Dextrose/Water 1 50ml.bag @ 12.5 mls/hr IVPB Q8HR [facility] Rx#: [id number] Potassium Chloride 10 meq 200 In Water For Injection 1 100ml.bag @ 100 mls/hr IVPB Q1H [facility] Rx#: [id number] Sodium Chloride 0.9% 1, 300 000 ml @ 100 mls/hr IV . Q10H [facility] Rx#:[id number] Sodium Chloride 0.9% 1, 1350 1800 150 000 ml @ 150 mls/hr IV . Q6H40M [facility] Rx#:[id number] Sodium Chloride 0.9% 1, 100 000 ml @ 999 mls/hr IV . Q1H1M [facility] Rx#:[id number] Intake, IV Titration 187.583 Amount Norepinephrin 16 mg-0.9% 139.458 Ns Pmx 16 mg In 250 ml @ Titrate IV .Q0M [facility] Rx#: [id number] Norepinephrin 16 mg-0.9% 48.125 Ns Pmx 16 mg In 250 ml @ Titrate IV .Q0M [facility] Rx#: [id number] Output: Urine 233 328 25 Other: Voiding Method Indwelling Catheter Indwelling Catheter # Bowel Movements 1 - Exam Gen. appearance the patient is very much hard of hearing and very hard to communicate with the patient. He looks calm and comfortable. He is laying comfortably in bed. Nonacute distress. It is membranes are dry.Head exam was generally normal. There was no scleral icterus or corneal arcus. Mucous membranes were moist. Neck is supple and there is no JVDs no goiter or neck masses. No obvious facial asymmetry. The patient has a right IJ triple-lumen catheter in place. Lung sounds are diminished and there is some limited correct in the right lung base. No wheezes or rhonchi any other abnormalities.Cardiac exam revealed the PMI to be normally situated and sized. The rhythm was irregular and no extrasystoles were noted during several minutes of auscultation. The first and second heart sounds were normal and physiologic splitting of the second heart sound was noted. There were no murmurs, rubs, clicks, or gallops.Abdominal exam revealed normal bowel sounds. The abdomen was soft, non-tender, and without masses, organomegaly, or appreciable enlargement of the abdominal aorta.Examination of the extremities revealed easily palpable radial, femoral and pedal pulses. There was no cyanosis, clubbing or edema. Neurologically there is equal and symmetrical motor function in all 4 extremities. The patient's speech is little bit garbled yet this could be his baseline. No obvious facial asymmetry. Good gag. Examination of the skin revealed no evidence of significant rashes, suspicious appearing nevi or other concerning lesions. Skeletal examination shows no obvious deformities, arthritis or open - Labs CBC & Chem 7: 04/12/17 04:58 04/12/17 04:58 Labs: Abnormal Lab Results - Last 24 Hours (Table) 04/11/17 04/11/17 04/11/17 Range/Units 04:50 12:21 13:00 WBC (3.8-10.6) k/uL RBC (4.30-5.90) m/uL Hgb (13.0-17.5) gm/dL Hct (39.0-53.0) % MCV (80.0-100.0) fL Plt Count (150-450) k/uL PT 22.7 H (9.0-12.0) sec INR 2.4 H (<1.2) Sodium (137-145) mmol/L Chloride (98-107) mmol/L Carbon Dioxide (22-30) mmol/L BUN (9-20) mg/dL Creatinine (0.66-1.25) mg/dL Glucose (74-99) mg/dL POC Glucose (mg/dL) 160 H (75-99) mg/dL Hemoglobin A1c 6.5 H (4.2-6.1) % Calcium (8.4-10.2) mg/dL Total Bilirubin (0.2-1.3) mg/dL AST (17-59) U/L ALT (21-72) U/L Alkaline Phosphatase (38-126) U/L Total Protein (6.3-8.2) g/dL Albumin (3.5-5.0) g/dL HDL Cholesterol (40-60) mg/dL Lipase (23-300) U/L 04/11/17 04/11/17 04/11/17 Range/Units 13:00 13:00 17:55 WBC (3.8-10.6) k/uL RBC (4.30-5.90) m/uL Hgb (13.0-17.5) gm/dL Hct (39.0-53.0) % MCV (80.0-100.0) fL Plt Count (150-450) k/uL PT (9.0-12.0) sec INR (<1.2) Sodium (137-145) mmol/L Chloride 113 H (98-107) mmol/L Carbon Dioxide 16 L (22-30) mmol/L BUN 48 H (9-20) mg/dL Creatinine 1.64 H (0.66-1.25) mg/dL Glucose 158 H (74-99) mg/dL POC Glucose (mg/dL) 130 H (75-99) mg/dL Hemoglobin A1c (4.2-6.1) % Calcium 7.6 L (8.4-10.2) mg/dL Total Bilirubin 4.9 H (0.2-1.3) mg/dL AST 203 H (17-59) U/L ALT 218 H (21-72) U/L Alkaline Phosphatase 146 H (38-126) U/L Total Protein 5.2 L (6.3-8.2) g/dL Albumin 2.5 L (3.5-5.0) g/dL HDL Cholesterol (40-60) mg/dL Lipase 1606 H (23-300) U/L 04/11/17 04/12/17 04/12/17 Range/Units 23:08 04:58 04:58 WBC 11.7 H (3.8-10.6) k/uL RBC 3.70 L (4.30-5.90) m/uL Hgb 11.6 L (13.0-17.5) gm/dL Hct 37.2 L (39.0-53.0) % MCV 100.5 H (80.0-100.0) fL Plt Count 91 L (150-450) k/uL PT (9.0-12.0) sec INR (<1.2) Sodium 146 H (137-145) mmol/L Chloride 116 H (98-107) mmol/L Carbon Dioxide 15 L (22-30) mmol/L BUN 49 H (9-20) mg/dL Creatinine 1.53 H (0.66-1.25) mg/dL Glucose (74-99) mg/dL POC Glucose (mg/dL) 120 H (75-99) mg/dL Hemoglobin A1c (4.2-6.1) % Calcium 7.8 L (8.4-10.2) mg/dL Total Bilirubin (0.2-1.3) mg/dL AST (17-59) U/L ALT (21-72) U/L Alkaline Phosphatase (38-126) U/L Total Protein (6.3-8.2) g/dL Albumin (3.5-5.0) g/dL HDL Cholesterol 15 L (40-60) mg/dL Lipase 1308 H (23-300) U/L 04/12/17 Range/Units 07:25 WBC (3.8-10.6) k/uL RBC (4.30-5.90) m/uL Hgb (13.0-17.5) gm/dL Hct (39.0-53.0) % MCV (80.0-100.0) fL Plt Count (150-450) k/uL PT 23.5 H (9.0-12.0) sec INR 2.4 H (<1.2) Sodium (137-145) mmol/L Chloride (98-107) mmol/L Carbon Dioxide (22-30) mmol/L BUN (9-20) mg/dL Creatinine (0.66-1.25) mg/dL Glucose (74-99) mg/dL POC Glucose (mg/dL) (75-99) mg/dL Hemoglobin A1c (4.2-6.1) % Calcium (8.4-10.2) mg/dL Total Bilirubin (0.2-1.3) mg/dL AST (17-59) U/L ALT (21-72) U/L Alkaline Phosphatase (38-126) U/L Total Protein (6.3-8.2) g/dL Albumin (3.5-5.0) g/dL HDL Cholesterol (40-60) mg/dL Lipase (23-300) U/L Microbiology - Last 24 Hours (Table) 04/10/17 19:25 Blood Culture Gram Stain - Preliminary Blood Blood Culture - Preliminary Gram Neg Bacilli 04/10/17 21:12 Urine Culture - Final Urine,Voided 04/10/17 19:25 Blood Culture - Preliminary Blood No Growth after 24 hours 04/11/17 01:15 Urine Culture - Preliminary Urine,Catheterized Assessment and Plan Plan: Assessment 1 acute cholecystitis/gallstones pancreatitis with secondary gram-negative septicemia. The patient was seen by gastroenterology and general surgery. The patient is awaiting ERCP today. 2 acute gram-negative septicemia secondary to above. The patient is currently hypotensive and in shock/septic shock, on examination IV fluids, pressors and antibiotics. The source of gram-negative septicemia was most likely the gallbladder. This morning the patient has been adequately resuscitated. He is still on norepinephrine infusion at 20 mics. Producing adequate amount of urine output. 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 fib flutter. 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 10 right lower lobe consolidation/effusion without signs of any pneumonia at this point 11 coronary artery disease 12 acute kidney injury with a creatinine of 1.8 at baseline and this is improving 13 extreme hard of hearing and very hard to communicate CHITRA Continue normal saline at the rate of 1 50 mL an hour. Continue present and gradually wean of the levo fed to maintain a mean artery pressure above 65. Continue Zosyn and Levaquin. Awaiting PT/INR and PTT from today. ERCP today. Monitor the LFTs. Monitor bilirubin alkaline phosphatase. General surgeries on the case. GI is on the case. Echocardiogram was noted. Watch for any signs of fluid overload. The patient is having short runs of atrial fibrillation along with some baseline sinus rhythm. Condition is still critical. We'll keep the patient ICU. Awaiting ERCP. We'll continue to follow.
[2017-04-12] MEDS ORDERED: PHYTONADIONE ORAL 5 MG/5 ML ORAL.SYRG PO STA (08:37)
--- NOTE | 2017-04-12 09:42 | PN ---
PROGRESS NOTE REQUESTING PHYSICIAN: Dr. Milton The patient is a 86-year-old pleasant white male who was admitted to the hospital with acute onset of abdominal pain associated with nausea, vomiting, and subsequently diagnosed to have sepsis/broad-spectrum bacteremia possibly related ascending cholangitis. He was noted to have acute gallstone pancreatitis with elevated amylase and lipase as well as serum transaminases and bilirubin up to 4.9 g/dL. CT scan did show evidence of dilated common bile duct and the patient was started on broad-spectrum antibiotics. He has history of atrial fibrillation, has been on Eliquis. The initial INR was 2.4. This morning repeat INR is 2.4 today. The patient states he is feeling better. He still has some abdominal pain. No nausea, vomiting. No fever, chills, or night sweats. PHYSICAL EXAMINATION: He appears comfortable. No apparent distress. VITAL SIGNS: Stable. Blood pressure 102/56 on 20 mcg of Levophed, pulse rate 102, temperature 98. HEENT examination unremarkable. Conjunctivae pink. Sclerae anicteric. Oral cavity no lesions. Neck: No jugular venous distention or lymph node enlargement. Chest was clear to auscultation. HEART: Regular rate and rhythm. ABDOMEN: Soft. Tenderness in the right upper quadrant area. No rebound or rigidity. Bowel sounds are positive. No organomegaly. Extremities: No pedal edema. Skin: No rashes. Neuro: He is alert and oriented x3. No focal deficits. LABS: Done today. INR is 2.4. Sodium 146, potassium 4.2, BUN is 49, creatinine 1.53, T bilirubin is down to 4, AST 988, ALT 778, BUN 49, creatinine 1.53. Troponin yesterday was 3.20. Lipase is down to 1308. IMPRESSIONS: The patient was admitted to the hospital with acute gallstone pancreatitis as well as sepsis secondary to ascending cholangitis from possibly CBD stones. CT of the abdomen did show evidence of dilated common bile duct to 1.6 cm in diameter. The patient on broad-spectrum antibiotics and clinically somewhat improving. Today noted to have worsening serum transaminases most likely explained on the basis of hypoperfusion to the liver from prolonged hypotension. However, his bilirubin has improved and so has the leukocytosis improved indicating that ascending cholangitis is gradually improving. He, however, continues to have elevated INR despite being off the Eliquis for 2 days and today INR is 2.4 and possibility of coagulopathy secondary to vitamin K deficiency from poor oral intake or antibiotic use needs to be considered. RECOMMENDATIONS: 1. Continue with broad-spectrum antibiotics. 2. We will start him on a clear liquid diet. 3. We will give him vitamin K today and repeat INR tomorrow morning and if it is less than 1.5, we will proceed for an ERCP tomorrow. The family is at the bedside and I had a lengthy discussion with them. Also the plan was discussed with Dr. Edge. At this time, we will follow him closely during his hospital stay. Thank you for this consultation. MMODL / IJN: [id number] /
--- NOTE | 2017-04-12 10:56 | P.PN ---
Subjective Progress Note Date: 04/12/17 Principal diagnosis: Cholangitis The patient is resting comfortable in bed. Apparently he is interested he is canceled due to his elevated INR. His INR is 2.47. He has some minimal epigastric pain. Objective - Vital Signs Vital signs: Vital Signs Temp 97.5 F L 04/12/17 08:00 Pulse 99 04/12/17 09:00 Resp 20 04/12/17 09:00 BP 105/65 04/12/17 09:00 Pulse Ox 99 04/12/17 09:00 Intake & Output 04/11/17 04/12/17 04/12/17 18:59 06:59 18:59 Intake Total 2387.583 2051.875 553.438 Output Total 233 328 120 Balance 2154.583 1723.875 433.438 Weight 73.6 kg Intake: IV 2200 1850.0 500 Levofloxacin 750Mg-D5w 150 Pmx 750 mg In Dextrose/ Water 1 150ml.bag @ 100 mls/hr IVPB ONCE [facility] Rx#: [id number] Piperacillin-Tazobactam 3 100 50.0 50 .375 gm In Dextrose/Water 1 50ml.bag @ 12.5 mls/hr IVPB Q8HR [facility] Rx#: [id number] Potassium Chloride 10 meq 200 In Water For Injection 1 100ml.bag @ 100 mls/hr IVPB Q1H [facility] Rx#: [id number] Sodium Chloride 0.9% 1, 300 000 ml @ 100 mls/hr IV . Q10H [facility] Rx#:[id number] Sodium Chloride 0.9% 1, 1350 1800 450 000 ml @ 150 mls/hr IV . Q6H40M [facility] Rx#:[id number] Sodium Chloride 0.9% 1, 100 000 ml @ 999 mls/hr IV . Q1H1M [facility] Rx#:[id number] Intake, IV Titration 187.583 201.875 53.438 Amount Norepinephrin 16 mg-0.9% 139.458 Ns Pmx 16 mg In 250 ml @ Titrate IV .Q0M [facility] Rx#: [id number] Norepinephrin 16 mg-0.9% 48.125 201.875 53.438 Ns Pmx 16 mg In 250 ml @ Titrate IV .Q0M [facility] Rx#: [id number] Output: Urine 233 328 120 Other: Voiding Method Indwelling Catheter Indwelling Catheter Indwelling Catheter # Bowel Movements 1 - Gastrointestinal Gastrointestinal Comment(s): Abdomen soft. There is mild epigastric pain. - Labs CBC & Chem 7: 04/12/17 04:58 04/12/17 04:58 Labs: Abnormal Lab Results - Last 24 Hours (Table) 04/11/17 04/11/17 04/11/17 Range/Units 04:50 12:21 13:00 WBC (3.8-10.6) k/uL RBC (4.30-5.90) m/uL Hgb (13.0-17.5) gm/dL Hct (39.0-53.0) % MCV (80.0-100.0) fL Plt Count (150-450) k/uL PT 22.7 H (9.0-12.0) sec INR 2.4 H (<1.2) Sodium (137-145) mmol/L Chloride (98-107) mmol/L Carbon Dioxide (22-30) mmol/L BUN (9-20) mg/dL Creatinine (0.66-1.25) mg/dL Glucose (74-99) mg/dL POC Glucose (mg/dL) 160 H (75-99) mg/dL Hemoglobin A1c 6.5 H (4.2-6.1) % Calcium (8.4-10.2) mg/dL Total Bilirubin (0.2-1.3) mg/dL AST (17-59) U/L ALT (21-72) U/L Alkaline Phosphatase (38-126) U/L Total Protein (6.3-8.2) g/dL Albumin (3.5-5.0) g/dL HDL Cholesterol (40-60) mg/dL Lipase (23-300) U/L 04/11/17 04/11/17 04/11/17 Range/Units 13:00 13:00 17:55 WBC (3.8-10.6) k/uL RBC (4.30-5.90) m/uL Hgb (13.0-17.5) gm/dL Hct (39.0-53.0) % MCV (80.0-100.0) fL Plt Count (150-450) k/uL PT (9.0-12.0) sec INR (<1.2) Sodium (137-145) mmol/L Chloride 113 H (98-107) mmol/L Carbon Dioxide 16 L (22-30) mmol/L BUN 48 H (9-20) mg/dL Creatinine 1.64 H (0.66-1.25) mg/dL Glucose 158 H (74-99) mg/dL POC Glucose (mg/dL) 130 H (75-99) mg/dL Hemoglobin A1c (4.2-6.1) % Calcium 7.6 L (8.4-10.2) mg/dL Total Bilirubin 4.9 H (0.2-1.3) mg/dL AST 203 H (17-59) U/L ALT 218 H (21-72) U/L Alkaline Phosphatase 146 H (38-126) U/L Total Protein 5.2 L (6.3-8.2) g/dL Albumin 2.5 L (3.5-5.0) g/dL HDL Cholesterol (40-60) mg/dL Lipase 1606 H (23-300) U/L 04/11/17 04/12/17 04/12/17 Range/Units 23:08 04:58 04:58 WBC 11.7 H (3.8-10.6) k/uL RBC 3.70 L (4.30-5.90) m/uL Hgb 11.6 L (13.0-17.5) gm/dL Hct 37.2 L (39.0-53.0) % MCV 100.5 H (80.0-100.0) fL Plt Count 91 L (150-450) k/uL PT (9.0-12.0) sec INR (<1.2) Sodium 146 H (137-145) mmol/L Chloride 116 H (98-107) mmol/L Carbon Dioxide 15 L (22-30) mmol/L BUN 49 H (9-20) mg/dL Creatinine 1.53 H (0.66-1.25) mg/dL Glucose (74-99) mg/dL POC Glucose (mg/dL) 120 H (75-99) mg/dL Hemoglobin A1c (4.2-6.1) % Calcium 7.8 L (8.4-10.2) mg/dL Total Bilirubin (0.2-1.3) mg/dL AST (17-59) U/L ALT (21-72) U/L Alkaline Phosphatase (38-126) U/L Total Protein (6.3-8.2) g/dL Albumin (3.5-5.0) g/dL HDL Cholesterol 15 L (40-60) mg/dL Lipase 1308 H (23-300) U/L 04/12/17 04/12/17 Range/Units 04:58 07:25 WBC (3.8-10.6) k/uL RBC (4.30-5.90) m/uL Hgb (13.0-17.5) gm/dL Hct (39.0-53.0) % MCV (80.0-100.0) fL Plt Count (150-450) k/uL PT 23.5 H (9.0-12.0) sec INR 2.4 H (<1.2) Sodium (137-145) mmol/L Chloride (98-107) mmol/L Carbon Dioxide (22-30) mmol/L BUN (9-20) mg/dL Creatinine (0.66-1.25) mg/dL Glucose (74-99) mg/dL POC Glucose (mg/dL) (75-99) mg/dL Hemoglobin A1c (4.2-6.1) % Calcium (8.4-10.2) mg/dL Total Bilirubin 4.0 H (0.2-1.3) mg/dL AST 988 H (17-59) U/L ALT 778 H (21-72) U/L Alkaline Phosphatase (38-126) U/L Total Protein (6.3-8.2) g/dL Albumin (3.5-5.0) g/dL HDL Cholesterol (40-60) mg/dL Lipase (23-300) U/L Microbiology - Last 24 Hours (Table) 04/10/17 19:25 Blood Culture Gram Stain - Preliminary Blood Blood Culture - Preliminary Gram Neg Bacilli 04/10/17 21:12 Urine Culture - Final Urine,Voided 04/10/17 19:25 Blood Culture - Preliminary Blood No Growth after 24 hours 04/11/17 01:15 Urine Culture - Preliminary Urine,Catheterized Assessment and Plan Plan: Cholecystitis. Patient will be scheduled for ERCP per Dr. kessler. I talked with Dr. Edge. He is receiving vitamin K today. He may receive fresh frozen plasma later today.
[2017-04-12 11:45] VITALS: BMI 25.4
[2017-04-12 12:17] LABS: Glucose,Whole Blood 112 mg/dL (75-99)
--- NOTE | 2017-04-12 13:48 | PN ---
PROGRESS NOTE CLARK / ANTWAN: [id number] /
--- NOTE | 2017-04-12 16:24 | PN ---
PROGRESS NOTE DATE OF SERVICE: 04/12/2017 INTERVAL HISTORY: This 86-year-old gentleman who was admitted with UTI with sepsis also had hypotension. At this time the patient is being closely monitored. Patient is on broad-spectrum IV antibiotics. Cultures are pending at this time. Patient had UTI, cholecystitis and sepsis. ERCP is also planned but the INR is high. Patient is on Eliquis. Patient's seen by surgery and as well as cardiology also. PAST MEDICAL HISTORY: Reviewed. REVIEW OF SYSTEMS: Cardiovascular: No angina or palpitations. Respiratory: As mentioned earlier. GI: As mentioned earlier. : As mentioned earlier. CENTRAL NERVOUS SYSTEM: No focal deficits. No numbness, weakness. CURRENT MEDICATIONS: 1. DuoNeb q.i.d. and p.r.n. 2. Humalog q.6h p.r.n. 3. Levaquin 750 q.48h hours. 4. Narcan. 5. Protonix. 6. Zosyn IV. PHYSICAL EXAM: Patient is alert, oriented x3. Pulse 86, blood pressure 97/65, respiratory rate 26, temp 97.4, pulse ox 97% on 2 L. HEENT: Conjunctivae normal. Oral mucosa moist. Neck is no jugular venous distention. No lymph node enlargement. No carotid bruit. Cardiovascular system: S1, S2 muffled. RESPIRATORY: Breath sounds diminished in the bases. A few scattered rhonchi and crackles. ABDOMEN: Soft. Mild diffuse tenderness in the right upper quadrant. Otherwise no guarding, no rigidity. No mass palpable. Legs no edema. No swelling. Central nervous system: No focal deficits. LABS: WBC 11.2, hemoglobin 11.6. Bilirubin is 4, AST is 988, ALT 778. Lipase is 1308. ASSESSMENT: 1. Acute cholecystitis and possible sepsis with severe sepsis and hypotension and septic shock. 2. Hyperbilirubinemia. 3. Increased AST/ALT. 4. Increased lipase possible acute pancreatitis. 5. Increased creatinine. 6. Atrial fibrillation. 7. History of hypertension. 8. History of myocardial infarction. RECOMMENDATIONS AND DISCUSSION: Recommend to continue current management and continue with symptomatic treatment. Continue broad-spectrum IV antibiotics. INR is 2.4 at this time. We will monitor the patient closely. Other than that, vitamin K has been also given. Closely follow with surgery and multiple other consultants to follow with Gastroenterology. Guarded prognosis. Further recommendations to follow. MMODL / IJN: [id number] /
[2017-04-12 18:15] LABS: Glucose,Whole Blood 176 mg/dL (75-99)
[2017-04-12 18:44] LABS: INR 2.4 (<1.2)
[2017-04-12 18:45] LABS: Prothrombin Time 22.7 sec (9.0-12.0)
[2017-04-12 23:17] LABS: Glucose,Whole Blood 176 mg/dL (75-99)
[2017-04-13] MEDS: INSULIN LISPRO (humaLOG) 300 UNIT/3 ML VIAL SQ SCH ×2 (01:08→07:02)
[2017-04-13] MEDS: PIPERACILLIN-TAZOBACTAM 3.375 GM in DEXTROSE/WATER 1 50ML.BAG IVPB SCH ×2 (01:14→08:02)
[2017-04-13] MEDS: NOREPINEPHRIN 16 MG-0.9%NS PMX 16 MG/250 ML ML IV SCH (01:16)
[2017-04-13 04:47] LABS: CH 30.7; CHCM 30.7; HCT 32.8 % (39.0-53.0); HDW 2.74; HGB 10.3 gm/dL (13.0-17.5); Hypochromasia Moderate; MCH 31.7 pg (25.0-35.0); MCHC 31.4 g/dL (31.0-37.0); MCV 100.9 fL (80.0-100.0); Macrocytosis Slight; Mean Platelet Volume 9.2; RBC 3.25 m/uL (4.30-5.90); RDW 14.6 % (11.5-15.5); WBC 8.5 k/uL (3.8-10.6)
[2017-04-13 04:54] LABS: INR 2.1 (<1.2); Prothrombin Time 19.8 sec (9.0-12.0)
[2017-04-13 05:37] LABS: Amylase 62 U/L (30-110); Anion Gap 14 mmol/L; Blood Urea Nitrogen 44 mg/dL (9-20); Calcium 8.3 mg/dL (8.4-10.2); Carbon Dioxide 14 mmol/L (22-30); Magnesium 2.3 mg/dL (1.6-2.3); Non-African American GFR(MDRD) 51 (>60 ml/min/1.73 sqM); Phosphorus 2.5 mg/dL (2.5-4.5); Potassium 3.7 mmol/L (3.5-5.1); Sodium 150 mmol/L (137-145); Total Bilirubin 4.3 mg/dL (0.2-1.3)
[2017-04-13 05:45] LABS: Chloride 122 mmol/L (98-107); Glucose 45 mg/dL (74-99)
[2017-04-13 05:47] LABS: ALT 1494 U/L (21-72)
[2017-04-13 05:48] LABS: Glucose,Whole Blood 38 mg/dL (75-99)
[2017-04-13] MEDS ORDERED: DEXTROSE 10 % IN WATER 250 ML IV STA ×2 (05:48→06:11)
[2017-04-13 06:13] LABS: Glucose,Whole Blood 38 mg/dL (75-99)
[2017-04-13 06:13] LABS: Glucose,Whole Blood 36 mg/dL (75-99)
[2017-04-13 06:28] LABS: AST 1905 U/L (17-59)
[2017-04-13 06:33] LABS: Glucose,Whole Blood 118 mg/dL (75-99)
[2017-04-13] MEDS ORDERED: DEXTROSE 5%-0.45% NACL 1,000 ML IV SCH (07:00)
[2017-04-13] MEDS ORDERED: LEVOFLOXACIN 750MG-D5W PMX 750 MG in DEXTROSE/WATER 1 150ML.BAG IVPB SCH (07:00)
[2017-04-13] MEDS: SODIUM CHLORIDE 0.9% 1,000 ML IV SCH (07:01)
--- NOTE | 2017-04-13 07:16 | XR ---
EXAMINATION TYPE: XR chest 1V DATE OF EXAM: 04/13/2017 HISTORY: shortness of breath. REFERENCE: Previous study dated 04/12/2017. FINDINGS: The patient's right internal jugular catheter remains in place, unchanged in appearance. The heart is mildly enlarged. There is worsening left basilar airspace disease. There is continuing r ight basilar airspace disease. There is a right-sided effusion. This may have worsened slightly from previous. IMPRESSION: 1. CARDIOMEGALY. 2. WORSENING LEFT BASILAR AIRSPACE DISEASE. 3. ENLARGING RIGHT-SIDED PLEURAL EFFUSION.
[2017-04-13] MEDS: PANTOPRAZOLE 40 MG/10 ML VIAL IV SCH (08:01)
[2017-04-13 09:01] VITALS: RESP 22
--- NOTE | 2017-04-13 09:10 | P.PN ---
Subjective Progress Note Date: 04/13/17 It is a 86-year-old male patient who was brought into the emergency department yesterday extremely sick. The patient apparently was getting progressively weak and this has been noted by the family. He tried to get out of bed and he fell and the family thought that there may be some facial droop on the left. There was initially concern of a stroke and for that reason the patient was rushed into the emergency department. In the ED, the patient was found to be quite sick with elevated lactate and abnormal troponins with abnormal liver function tests and amylase and lipase. Noted the patient was also becoming hypotensive. A triple lumen catheter was inserted and the patient was started on fluids and antibiotics. Based on the abnormalities in liver function tests, the patient had an ultrasound of the gallbladder and the ultrasound findings showed dilated and thickened gallbladder wall and the gallbladder measured 4.5 cm. This was consistent with acute cholecystitis. There was also dilated common bile duct that raised the possibility of common bile duct stone obstruction. He did have an obstructive pattern on his liver function tests with an AST of 155 and ALP of 186 and alkaline phosphatase of 199. The bilirubin was 5.9. Lipase was at 3373. Meanwhile the blood cultures from this morning came back positive for gram-negative bacillus and the blood and the patient is currently covered with a combination of Zosyn and Levaquin. Note that the patient is also hypotensive and the patient is currently on levofed at 15 mics. Urine output is average at around 40 mL an hour. The patient is currently o IV fluids and he is receiving normal state rate of 100 mL an hour. White cell count is up to 18.2. The patient has history of chronic atrial fibrillation/flutter and the patient takes Eliquis at home and his INR currently is at 2. 4. This morning, the patient's lipase level is down trending. His LFTs are also improving. His creatinine is also down to 1.4. 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 The patient is very hard of hearing. Very difficult to communicate with the patient. Yet for the most part he is awake. He is following commands. There is no focal neurological deficits. He also denies having any significant abdominal pain. On 04/12/2017 the patient is being seen for a follow-up. He is doing well. Is awake alert and following commands and answering questions appropriately. No confusion or change in mental status. No significant abdominal pain. As mentioned, the patient has a biliary sepsis with gram-negative bacilli and the blood and the patient is on a combination of Zosyn and Levaquin. Hemodynamically, the patient is on a normal saline infusion running at 150 mL an hour and patient is also on norepinephrine infusion running at 20 mics. The lipase level has been dropping consistently is down to 1500. Meanwhile follow- up liver function tests are still pending. Correlation profile is also pending from this morning and this will be needed as the patient may possibly go for an ERCP today. That coagulation is on hold. He is producing decent urine output. His hemoglobin is 11.7. His creatinine is at 1.5. Echocardiogram was done yesterday and showed a very poor ejection fraction of around 20%. The patient also has a right ventricular systolic pressure of around 78 mmHg probably related to her left-sided failure. Left and it is moderately dilated. Mild MR. On 04/13/2015, the patient is being seen for a follow-up. The patient has gallstone pancreatitis with secondary septic shock with E. coli. The patient was supposed to have an ERCP yesterday however he was coagulopathic and the procedure was canceled by GI. Meanwhile, and that giving this patient in a vitamin K and 2 units of fresh frozen plasma and INR today is at 2.1. PT is at 19.8. I think there is an underlying component of hepatic insufficiency causing abnormalities in the coagulation profile. The patient's oral anticoagulation has been held for more than 48 hours. Platelet count are also lower at 53 and it may be essentially consumptive. Yet the patient is on a combination of Zosyn and Levaquin and I am in the process of switching to Zosyn to Merrem due to the evolving thrombocytopenia. The patient this morning is a bit confused. He is lethargic. He is weak. His abdomen is more tense. There is some right upper quadrant tenderness. LFTs are on the rise and AST is at 1905 and ALP is 1494. Bilirubin is at 4.3. Lipase is 658. The patient also developed a hyperchloremic hypernatremia due to normal saline infusion. He has a mild component of anion gap metabolic acidosis. Anion gap is at 14. Bicarb level is at 14. Sodium level is up to 150. He is producing adequate amount of urine output. The patient is still on pressors, on levo fed. Earlier this morning the blood sugar was at 45 and based on that the IV fluids was switched to D5 half-normal saline at the rate of 75 mL an hour. The patient is having also arrhythmias. Frequent PACs and PVCs. The rhythm is still sinus. 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 Objective - Vital Signs Vital signs: Vital Signs Temp 97.6 F 04/13/17 08:40 Pulse 107 H 04/13/17 08:50 Resp 34 H 04/13/17 07:00 BP 94/69 04/13/17 08:50 Pulse Ox 95 04/13/17 08:50 Intake & Output 04/12/17 04/13/17 04/13/17 18:59 06:59 18:59 Intake Total 2036.095 3666.905 540 Output Total 402 433 45 Balance 5493.915 2575.905 495 Weight 73.6 kg 75.4 kg Intake: IV 1900 1800 Piperacillin-Tazobactam 3 100 .375 gm In Dextrose/Water 1 50ml.bag @ 12.5 mls/hr IVPB Q8HR [facility] Rx#: [id number] Sodium Chloride 0.9% 1, 1800 1800 000 ml @ 150 mls/hr IV . Q6H40M [facility] Rx#:[id number] Intake, IV Titration 136.095 662.905 225 Amount Dextrose 10 % in Water 250 250 ml @ 999 mls/hr IV ONCE STA Rx#:[id number] Dextrose 10 % in Water 250 250 ml @ 999 mls/hr IV ONCE STA Rx#:[id number] Dextrose 5%-0.45% NaCl 1, 75 000 ml @ 75 mls/hr IV . [id number] [facility] Rx#:[id number] Levofloxacin 750Mg-D5w 150 Pmx 750 mg In Dextrose/ Water 1 150ml.bag @ 100 mls/hr IVPB Q48H [facility] Rx#: [id number] Norepinephrin 16 mg-0.9% 136.095 162.905 Ns Pmx 16 mg In 250 ml @ Titrate IV .Q0M [facility] Rx#: [id number] Blood Product 1204 315 Ffp 24 Cpd Unit 315 [id number] Ffp 24 Cpd Unit 295 [id number] Ffp 24 Cpd Unit 307 [id number] Output: Urine 402 433 45 Other: Voiding Method Indwelling Catheter Indwelling Catheter Indwelling Catheter - Exam Gen. appearance the patient is very much hard of hearing and very hard to communicate with the patient. He looks calm and comfortable. He is laying comfortably in bed. Nonacute distress. It is membranes are dry.Head exam was generally normal. There was no scleral icterus or corneal arcus. Mucous membranes were moist. Neck is supple and there is no JVDs no goiter or neck masses. No obvious facial asymmetry. The patient has a right IJ triple-lumen catheter in place. Lung sounds are diminished and there is some limited correct in the right lung base. No wheezes or rhonchi any other abnormalities.Cardiac exam revealed the PMI to be normally situated and sized. The rhythm was irregular and no extrasystoles were noted during several minutes of auscultation. The first and second heart sounds were normal and physiologic splitting of the second heart sound was noted. There were no murmurs, rubs, clicks, or gallops.Abdominal exam revealed normal bowel sounds. The abdomen was soft, yet tender in the right upper quadrant area. Bowel sounds are hypoactive. , and without masses, organomegaly, or appreciable enlargement of the abdominal aorta.Examination of the extremities revealed easily palpable radial, femoral and pedal pulses. There was no cyanosis, clubbing or edema. Neurologically there is equal and symmetrical motor function in all 4 extremities. The patient 's speech adequate and normal. At times the patient is felt to be confused at the time of my evaluation this morning the mental status was appropriate.. No obvious facial asymmetry. Good gag. Examination of the skin revealed no evidence of significant rashes, suspicious appearing nevi or other concerning lesions. Skeletal examination shows no obvious deformities, arthritis or open - Labs CBC & Chem 7: 04/13/17 04:35 04/13/17 04:35 Labs: Abnormal Lab Results - Last 24 Hours (Table) 04/12/17 04/12/17 04/12/17 Range/Units 12:14 18:12 18:15 RBC (4.30-5.90) m/uL Hgb (13.0-17.5) gm/dL Hct (39.0-53.0) % MCV (80.0-100.0) fL Plt Count (150-450) k/uL PT 22.7 H (9.0-12.0) sec INR 2.4 H (<1.2) Sodium (137-145) mmol/L Chloride (98-107) mmol/L Carbon Dioxide (22-30) mmol/L BUN (9-20) mg/dL Creatinine (0.66-1.25) mg/dL Glucose (74-99) mg/dL POC Glucose (mg/dL) 112 H 176 H (75-99) mg/dL Calcium (8.4-10.2) mg/dL Total Bilirubin (0.2-1.3) mg/dL AST (17-59) U/L ALT (21-72) U/L Lipase (23-300) U/L 04/12/17 04/13/17 04/13/17 Range/Units 23:16 04:35 04:35 RBC 3.25 L (4.30-5.90) m/uL Hgb 10.3 L (13.0-17.5) gm/dL Hct 32.8 L (39.0-53.0) % MCV 100.9 H (80.0-100.0) fL Plt Count 53 L (150-450) k/uL PT (9.0-12.0) sec INR (<1.2) Sodium 150 H (137-145) mmol/L Chloride 122 H* (98-107) mmol/L Carbon Dioxide 14 L (22-30) mmol/L BUN 44 H (9-20) mg/dL Creatinine 1.34 H (0.66-1.25) mg/dL Glucose 45 L* (74-99) mg/dL POC Glucose (mg/dL) 176 H (75-99) mg/dL Calcium 8.3 L (8.4-10.2) mg/dL Total Bilirubin 4.3 H (0.2-1.3) mg/dL AST 1905 H (17-59) U/L ALT 1494 H (21-72) U/L Lipase 658 H (23-300) U/L 04/13/17 04/13/17 04/13/17 Range/Units 04:35 05:45 06:07 RBC (4.30-5.90) m/uL Hgb (13.0-17.5) gm/dL Hct (39.0-53.0) % MCV (80.0-100.0) fL Plt Count (150-450) k/uL PT 19.8 H (9.0-12.0) sec INR 2.1 H (<1.2) Sodium (137-145) mmol/L Chloride (98-107) mmol/L Carbon Dioxide (22-30) mmol/L BUN (9-20) mg/dL Creatinine (0.66-1.25) mg/dL Glucose (74-99) mg/dL POC Glucose (mg/dL) 38 L 38 L (75-99) mg/dL Calcium (8.4-10.2) mg/dL Total Bilirubin (0.2-1.3) mg/dL AST (17-59) U/L ALT (21-72) U/L Lipase (23-300) U/L 04/13/17 04/13/17 Range/Units 06:10 06:32 RBC (4.30-5.90) m/uL Hgb (13.0-17.5) gm/dL Hct (39.0-53.0) % MCV (80.0-100.0) fL Plt Count (150-450) k/uL PT (9.0-12.0) sec INR (<1.2) Sodium (137-145) mmol/L Chloride (98-107) mmol/L Carbon Dioxide (22-30) mmol/L BUN (9-20) mg/dL Creatinine (0.66-1.25) mg/dL Glucose (74-99) mg/dL POC Glucose (mg/dL) 36 L 118 H (75-99) mg/dL Calcium (8.4-10.2) mg/dL Total Bilirubin (0.2-1.3) mg/dL AST (17-59) U/L ALT (21-72) U/L Lipase (23-300) U/L Microbiology - Last 24 Hours (Table) 04/10/17 19:25 Blood Culture Gram Stain - Final Blood Blood Culture - Final Escherichia coli 04/10/17 19:25 Blood Culture - Preliminary Blood No Growth after 48 hours 04/11/17 01:15 Urine Culture - Final Urine,Catheterized Assessment and Plan Plan: Assessment 1 acute cholecystitis/gallstones pancreatitis with secondary gram-negative septicemia. The patient has persistent elevation of the liver function tests including elevation of the AST and ALP. Bilirubin is also elevated at 4.3. The patient has gram-negative septicemia and the patient has E. coli in the blood. Currently on a combination of Zosyn and Levaquin. The patient is also on pressors, awaiting ERCP. 2 acute gram-negative septicemia secondary to Ecoli secondary to above. The patient is currently hypotensive and in shock/septic shock, on examination IV fluids, pressors and antibiotics. The patient is still on norepinephrine infusion at 13 micrograms. He also has an underlying cardiomyopathy and ejection fraction of less than 20% 3 acute non-STEMI 4 old CVA without evidence of any new onset neurologic deficits. 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 fib flutter. Current rhythm is sinus with first-degree AV block and frequent PACs 6 coagulopathy/ thrombocytopenia 7 diabetes mellitus currently nothing by mouth and currently off the oral hypoglycemic medications 8 hyperlipidemia 9 congestion heart failure, referred to the echocardiogram results with an ejection fraction of less than 20% and severe pulmonary hypertension secondary to left-sided failure. 10 right lower lobe consolidation/effusion without signs of any pneumonia at this point 11 coronary artery disease 12 acute kidney injury with a creatinine of 1.8 at baseline and this is improving 13 extreme hard of hearing and very hard to communicate 14 coagulopathy with evolving thrombocytopenia. The coagulopathy is probably related to hepatic dysfunction is unlikely to be related to Eliquis. Possibly there may be a component of DIC causing coagulopathy and thrombocytopenia. The patient was given a dose of 10 mg of vitamin K yesterday and 2 units of fresh frozen plasma. INR is at 2.1 with a PT of 19.8. 2 additional units of fresh frozen plasma will be given the patient will be also switch from Zosyn to Merrem. 15 hyperchloremic hypernatremia, with a episodes of hypoglycemia and the patient will be switched to D5 half-normal saline at rate of 75 mL an hour. 16 delirium, altered mentation PLAN Change IV fluids to D5 half-normal saline at the rate of 75 mL an hour. Wean off levo fed if possible keep a mean artery pressure above 65. Drop the Zosyn due to thrombocytopenia and switch to Merrem. Continue the Levaquin. The patient has gram-negative septicemia and double antibiotic coverage will be. Monitor liver function test and there is a component of hepatic insufficiency with coagulopathy. There may be a component of DIC in addition. Will give this patient additional units of fresh frozen plasma. Discussed the case with GI. The patient have an ERCP today and possibly a stent insertion and sphincterotomy. The patient was brought back to the ICU following the procedure. General surgeries on the case. We'll monitor liver function tests. We'll monitor the lipase. Monitor the blood sugar. Avoid hypoglycemia. Monitor coagulation profile. Repeat all labs in a.m. Condition is critical. We'll continue to follow. Critically care evaluation more than 30 minutes. Time with Patient: Greater than 30
[2017-04-13 09:14] VITALS: BP 84/57; PULSE 101; TEMP 97.5
[2017-04-13] MEDS ORDERED: fentaNYL (PF) 50 MCG/ML 2 ML AMP ONE (09:24)
[2017-04-13 10:16] LABS: Glucose,Whole Blood 177 mg/dL (75-99)
--- NOTE | 2017-04-13 11:26 | P.PN ---
Subjective Progress Note Date: 04/13/17 Patient is an 86-year-old white male admitted to the hospital with sepsis secondary to ascending cholangitis 3 days ago and has been on pressors and broad -spectrum antibiotics as well as pressors since then. He was an ELIQUIS which has been on hold but INR was elevated at 2.4. He received 2 units of white fresh was a plasma as well as 10 minute grams of vitamin K yesterday and this morning INR is 2.1. He denies any abdominal pain today. No nausea vomiting, no fever chills or night sweats. He continues to remain on Levophed 13 mcg/kg body weight Objective - Vital Signs Vital signs: Vital Signs Temp 97.5 F L 04/13/17 09:10 Pulse 101 H 04/13/17 09:10 Resp 22 04/13/17 09:00 BP 84/57 04/13/17 09:10 Pulse Ox 94 L 04/13/17 09:10 Intake & Output 04/12/17 04/13/17 04/13/17 18:59 06:59 18:59 Intake Total 2036.095 3666.905 690 Output Total 402 433 125 Balance 8979.048 0238.905 565 Weight 73.6 kg 75.4 kg Intake: IV 1900 1800 Piperacillin-Tazobactam 3 100 .375 gm In Dextrose/Water 1 50ml.bag @ 12.5 mls/hr IVPB Q8HR [facility] Rx#: [id number] Sodium Chloride 0.9% 1, 1800 1800 000 ml @ 150 mls/hr IV . Q6H40M [facility] Rx#:[id number] Intake, IV Titration 136.095 662.905 375 Amount Dextrose 10 % in Water 250 250 ml @ 999 mls/hr IV ONCE STA Rx#:[id number] Dextrose 10 % in Water 250 250 ml @ 999 mls/hr IV ONCE STA Rx#:[id number] Dextrose 5%-0.45% NaCl 1, 225 000 ml @ 75 mls/hr IV . [id number] [facility] Rx#:[id number] Levofloxacin 750Mg-D5w 150 Pmx 750 mg In Dextrose/ Water 1 150ml.bag @ 100 mls/hr IVPB Q48H [facility] Rx#: [id number] Norepinephrin 16 mg-0.9% 136.095 162.905 Ns Pmx 16 mg In 250 ml @ Titrate IV .Q0M [facility] Rx#: [id number] Blood Product 1204 315 Ffp 24 Cpd Unit 315 [id number] Ffp 24 Cpd Unit 295 [id number] Ffp 24 Cpd Unit 307 [id number] Ffp 24 Cpd Unit 0 [id number] Output: Urine 402 433 125 Other: Voiding Method Indwelling Catheter Indwelling Catheter Indwelling Catheter # Bowel Movements 1 - Exam On physical examination, patient appears comfortable in no apparent distress. Vital signs are stable. HEENT: Unremarkable. Conjunctivae pink. Sclerae anicteric. Oral cavity no lesions. NECK: No JVD or lymph node enlargement. CHEST: Clear to auscultation. HEART: Regular rate and rhythm. ABDOMEN: Soft. Bowel sounds are positive. No organomegaly. Mild tenderness in the right upper quadrant area. EXTREMITIES: No pedal edema. SKIN: No rashes. NEUROLOGIC: Alert and oriented x3. No focal deficits. - Labs CBC & Chem 7: 04/13/17 04:35 04/13/17 04:35 Labs: Abnormal Lab Results - Last 24 Hours (Table) 04/12/17 04/12/17 04/12/17 Range/Units 12:14 18:12 18:15 RBC (4.30-5.90) m/uL Hgb (13.0-17.5) gm/dL Hct (39.0-53.0) % MCV (80.0-100.0) fL Plt Count (150-450) k/uL PT 22.7 H (9.0-12.0) sec INR 2.4 H (<1.2) Sodium (137-145) mmol/L Chloride (98-107) mmol/L Carbon Dioxide (22-30) mmol/L BUN (9-20) mg/dL Creatinine (0.66-1.25) mg/dL Glucose (74-99) mg/dL POC Glucose (mg/dL) 112 H 176 H (75-99) mg/dL Calcium (8.4-10.2) mg/dL Total Bilirubin (0.2-1.3) mg/dL AST (17-59) U/L ALT (21-72) U/L Lipase (23-300) U/L 10/04/13/17 04/13/17 Range/Units 23:16 04:35 04:35 RBC 3.25 L (4.30-5.90) m/uL Hgb 10.3 L (13.0-17.5) gm/dL Hct 32.8 L (39.0-53.0) % MCV 100.9 H (80.0-100.0) fL Plt Count 53 L (150-450) k/uL PT (9.0-12.0) sec INR (<1.2) Sodium 150 H (137-145) mmol/L Chloride 122 H* (98-107) mmol/L Carbon Dioxide 14 L (22-30) mmol/L BUN 44 H (9-20) mg/dL Creatinine 1.34 H (0.66-1.25) mg/dL Glucose 45 L* (74-99) mg/dL POC Glucose (mg/dL) 176 H (75-99) mg/dL Calcium 8.3 L (8.4-10.2) mg/dL Total Bilirubin 4.3 H (0.2-1.3) mg/dL AST 1905 H (17-59) U/L ALT 1494 H (21-72) U/L Lipase 658 H (23-300) U/L 04/13/17 04/13/17 04/13/17 Range/Units 04:35 05:45 06:07 RBC (4.30-5.90) m/uL Hgb (13.0-17.5) gm/dL Hct (39.0-53.0) % MCV (80.0-100.0) fL Plt Count (150-450) k/uL PT 19.8 H (9.0-12.0) sec INR 2.1 H (<1.2) Sodium (137-145) mmol/L Chloride (98-107) mmol/L Carbon Dioxide (22-30) mmol/L BUN (9-20) mg/dL Creatinine (0.66-1.25) mg/dL Glucose (74-99) mg/dL POC Glucose (mg/dL) 38 L 38 L (75-99) mg/dL Calcium (8.4-10.2) mg/dL Total Bilirubin (0.2-1.3) mg/dL AST (17-59) U/L ALT (21-72) U/L Lipase (23-300) U/L 04/13/17 04/13/17 04/13/17 Range/Units 06:10 06:32 10:06 RBC (4.30-5.90) m/uL Hgb (13.0-17.5) gm/dL Hct (39.0-53.0) % MCV (80.0-100.0) fL Plt Count (150-450) k/uL PT (9.0-12.0) sec INR (<1.2) Sodium (137-145) mmol/L Chloride (98-107) mmol/L Carbon Dioxide (22-30) mmol/L BUN (9-20) mg/dL Creatinine (0.66-1.25) mg/dL Glucose (74-99) mg/dL POC Glucose (mg/dL) 36 L 118 H 177 H (75-99) mg/dL Calcium (8.4-10.2) mg/dL Total Bilirubin (0.2-1.3) mg/dL AST (17-59) U/L ALT (21-72) U/L Lipase (23-300) U/L Microbiology - Last 24 Hours (Table) 04/10/17 19:25 Blood Culture Gram Stain - Final Blood Blood Culture - Final Escherichia coli 04/10/17 19:25 Blood Culture - Preliminary Blood No Growth after 48 hours 04/11/17 01:15 Urine Culture - Final Urine,Catheterized Assessment and Plan (1) Gallstone pancreatitis Narrative/Plan: Patient was in the hospital with abdominal pain and acute gallstone pancreatitis. Initially was noted to have elevated bilirubin up to 4.9 which gradually improved. However today is slightly worse and serum transaminases are increasing. Lipase also is slightly increased today. He remains on pressors and antibiotics for sepsis/septic shock. Status: Acute (2) Sepsis Narrative/Plan: Sepsis secondary to ascending cholangitis. His labs revealed total bilirubin is gradually improving. Serum transaminases are significantly worsened but probably this is related to ischemic hepatitis superimposed on ascending cholangitis. He remains on broad spectrum antibiotics. Still continues to remain on pressors but he will be given 13 mcg/kg body weight. Status: Acute (3) Coagulopathy Narrative/Plan: Patient has A. fib and has been on liquids for the last few months which has been on hold for 3 days. Despite which the INR is still 2.1 today. He received vitamin K as well as fresh frozen plasma yesterday. He is giving 2 units of fresh was an plasma prior to the ERCP procedure today Status: Acute Plan: Discussed with the patient as well as the family about ongoing medical condition. Was decided to proceed with ERCP with a possible CBD stent placement today because of ongoing sepsis and ascending cholangitis. He received 2 units of fresh was impossible last night and 2 units this morning prior to the procedure. Labs were reviewed with the patient. Also the plan was discussed with Dr. Edge. Patient and family were agreeable with the plan. Patient was brought into the endoscopy unit and he was sedated by anesthesia. Immediately he went into respiratory arrest and he was intubated appropriately. Following this he went into cardiac arrest and asystole and code was called and patient was resuscitated by the team for more than 30 minutes. Patient was pronounced at 10:20 AM. Time with Patient: Greater than 30
--- NOTE | 2017-04-13 14:25 | DS ---
DISCHARGE SUMMARY PRELIMINARY CAUSE OF : Acute cholecystitis and ascending cholangitis with severe sepsis with hypotension, severe sepsis and septic shock. OTHER DIAGNOSES: 1. Hyperbilirubinemia. 2. Increased AST/ALT. 3. Increased lipase, possible acute pancreatitis. 4. Increased creatinine. 5. Atrial fibrillation. 6. History of hypertension. 7. History myocardial infarction. HISTORY OF PRESENT ILLNESS: This 86-year-old gentleman with a past medical history of multiple medical problems was admitted with acute cholecystitis and cholangitis and sepsis and severe hypotension. The patient was monitored in the ICU. Pressor support was given. ERCP was attempted but however after anesthesia patient dveloped cardio respiraory arrest. CPR WAS DONE. However the patient did not improve and succumbed to the above mentioned multiple medical issues. The prognosis was extremely guarded throughout hospitalization. Please refer Dr. Haro's notes for events in the operating room and also multiple consultation notes from Dr. Edge as well as Dr. Rudd with Cardiology for further information. Once again, the prognosis is extremely guarded. The patient was treated very intensive in ICU. Despite that, the patient because of multiple complex medical issues. MMODL / IJN: [id number] / SUHAS
--- NOTE | 2017-04-14 09:23 | CONS ---
DATE OF CONSULTATION: 04/14/2017 This is an 86-year-old gentleman who has been admitted and who has been intubated with history of diabetes mellitus, congestive heart failure, positive for pneumonia and acute on chronic kidney injury. I was consulted for placement of the dialysis catheter. The patient was seen in the intensive care unit. The patient has been intubated. Chest has bilateral crackles. Air entry is noted bilaterally. First and second sounds are normal. Abdomen is soft, nontender. Examination of the brachial, radial, and femoral pulses present. Patient has mild lower extremity edema. PLAN: Placement of a dialysis catheter. Risks and complication discussed. MMODL / IJN: [id number] / [id number]
== END 2017-04-13 14:00 | disposition expired | DRG 871 ==
LOC: EC 18:54 → 6ICU 23:26
PROVIDERS: ADMIT Hospitalist; ATTEND Hospitalist
DX: A41.51 Sepsis due to Escherichia coli [E. coli] (principal); I21.4 Non-ST elevation (NSTEMI) myocardial infarction; R65.21 Severe sepsis with septic shock; K80.42 Calculus of bile duct with acute cholecystitis without obstruction; R09.2 Respiratory arrest; N17.9 Acute kidney failure, unspecified; D68.8 Other specified coagulation defects; K80.31 Calculus of bile duct with cholangitis, unspecified, with obstruction; I13.0 Hypertensive heart and chronic kidney disease with heart failure and stage 1 through stage 4 chronic kidney disease, or unspecified chronic kidney disease; I50.1 Left ventricular failure, unspecified; K85.10 Biliary acute pancreatitis without necrosis or infection; E87.0 Hyperosmolality and hypernatremia; E87.2 Acidosis; I42.9 Cardiomyopathy, unspecified; N39.0 Urinary tract infection, site not specified; E11.22 Type 2 diabetes mellitus with diabetic chronic kidney disease; E11.649 Type 2 diabetes mellitus with hypoglycemia without coma; D69.6 Thrombocytopenia, unspecified; E78.5 Hyperlipidemia, unspecified; E87.8 Other disorders of electrolyte and fluid balance, not elsewhere classified; H91.90 Unspecified hearing loss, unspecified ear; I25.10 Atherosclerotic heart disease of native coronary artery without angina pectoris; I44.0 Atrioventricular block, first degree; I48.2 Chronic atrial fibrillation; I49.1 Atrial premature depolarization; K75.9 Inflammatory liver disease, unspecified; K76.89 Other specified diseases of liver; Z53.9 Procedure and treatment not carried out, unspecified reason; Z79.01 Long term (current) use of anticoagulants; Z79.899 Other long term (current) drug therapy; Z86.73 Personal history of transient ischemic attack (TIA), and cerebral infarction without residual deficits; I27.29 Other secondary pulmonary hypertension
CPT/HCPCS: 36415; 43260; 70450; 71010; 71020; 76705; 80048; 80053; 80061; 80074; 81001; 82140; 82150; 82247; 82550; 82553; 82803; 83036; 83520; 83605; 83690; 83735; 84100; 84450; 84460; 84484; 85025; 85027; 85610; 85730; 86850; 86900; 86901; 87040; 87077; 87086; 87186; 93005; 93306; 94760; 96365; 96366; 96367; 96368; 99291